=== PATIENT | male | born 1985 | race Hispanic/Latino ===

== ENCOUNTER 2017-05-18 14:28 | Emergency (ER) | payer BC, OTHER ==
--- NOTE | 2017-05-18 15:22 | RAD REPORT ---
EXAM DESCRIPTION: CT - Stone Protocol - 05/18/2017 3:10 pm CLINICAL HISTORY: Flank pain. COMPARISON: None. TECHNIQUE: Axial images were obtained without oral or IV contrast. Lack of contrast limits solid org an and vascular assessment. The [id number] spans the entirety of the system partially obscuring uppermost abdomen and lung bases. Coronal reformatted images were obtained and reviewed. All CT scans are performed using dose optimization technique as appropriate and may include automated exposure control or mA/KV adjustment according to patient size. FINDINGS: The lower lung funes are clear. Imaged portions of the liver and spleen show no suspicious findings on non-contrast imaging. The panc reas and adrenal glands are normal. No pathologic lymphadenopathy in the abdomen or pelvis. No urinary tract stones or obstructive uropathy. No bowel obstruction, free air, free fluid or abscess. Normal appendix noted. No significant bony abnormality. IMPRESSION: No urinary tract stones or obstructive uropathy.
[2017-05-18] MEDS ORDERED: NA CHLORIDE 0.9% 1,000 ML ONE (15:39)
[2017-05-18 15:45] LABS: Urine Blood NEGATIVE (NEG); Urine Glucose NEGATIVE (NEG); Urine Protein NEGATIVE (NEG); Urine Specific Gravity 1.025 (1.005-1.030)
[2017-05-18 15:54] LABS: Bicarbonate 26 mEq/L (21-31); Glucose Level 98 mg/dL (65-120); Lipase 17 U/L (22-51); Potassium 3.7 mEq/L (3.6-5.0); Sodium Level 138 mEq/L (135-145)
[2017-05-18 16:01] LABS: ALT/SGPT 41 IU/L (10-60); AST/SGOT 32 IU/L (10-42); Albumin 4.1 g/dL (3.2-5.5); Alkaline Phosphatase 118 IU/L (42-121); BUN Blood Urea Nitrogen 13 mg/dL (6-20); Bilirubin Direct 0.1 mg/dL (0-0.2); Bilirubin Total 0.6 mg/dL (0.3-1.2); Glomerular Filtration Rate > 90 mL/min (=/>90)
[2017-05-18 16:05] LABS: Absolute Monocytes 0.9 K/uL (0.1-1.3); Absolute Neutrophil 7.3 K/uL (1.8-8.0); Basophils % 0.5 % (0-1.3); Eosinophils % 3.4 % (0-4.4); Lymphocytes % 25.8 % (15.3-44.8); MCH 28.8 pg (27.0-35.0); MCV 84.9 fL (80-100); MPV 9.6 fL (7.6-11.3); Monocytes % 7.7 % (3.3-12.3); RBC Red Blood Cell Count 5.54 M/uL (4.33-5.43)
--- NOTE | 2017-05-18 16:43 | ER ---
Nurse's Notes [facility] Name: Mauro Bautista Jr Age: 31 yrs Sex: Male : 1985 Arrival Date: 05/18/2017 Time: 14:33 Bed 15 Private MD: Diagnosis: Low back pain Presentation: 05/18 14:37 Presenting complaint: Patient states: Left flank pain x 5 days. Vomit x 1 2 days ago. hb Denies fever/urinary s/s. Transition of care: patient was not received from another setting of care. Onset of symptoms was May 13, 2017. Care prior to arrival: None. 14:37 Method Of Arrival: Ambulatory hb 14:37 Acuity: KILO 3 hb Historical: - Allergies: 14:39 No Known Allergies; hb - Home Meds: 14:39 None [Active]; hb - PMHx: 14:39 None; hb - PSHx: 14:39 foot - left; arm - right; hb - Immunization history:: Adult Immunizations up to date. - Social history:: Smoking status: Patient/guardian denies using tobacco. Screenin:02 Abuse screen: Denies threats or abuse. Nutritional screening: No deficits noted. ap3 Tuberculosis screening: No symptoms or risk factors identified. Fall Risk None identified. Assessment: 14:59 General: Appears in no apparent distress. obese, Behavior is calm, cooperative. Pain: ap3 Complains of pain in anterior aspect of left lateral abdomen and posterior aspect of left lateral abdomen Pain does not radiate. Pain began patient states pain began Saturday, May 13, 2017 Aggravated by leaning to the left side. Neuro: Level of Consciousness is awake, alert, obeys commands, Oriented to person, place, time, situation. Cardiovascular: Heart tones S1 S2 present Patient's skin is warm and dry. Respiratory: Airway is patent Breath sounds are clear bilaterally. GI: Abdomen is round Last BM was May 18, 2017. at 12:00. Bowel sounds present X 4 quads. Abd is soft and non tender X 4 quads. Reports diarrhea, vomiting one time on Monday May 15, 2017. : No signs and/or symptoms were reported regarding the genitourinary system. EENT: No signs and/or symptoms were reported regarding the EENT system. Derm: Skin is normal. Musculoskeletal: Reports pain in anterior aspect of left lateral abdomen and posterior aspect of left lateral abdomen. Vital Signs: 14:38 BP 164 / 93; Pulse 73; Resp 16; Temp 97.9; Pulse Ox 96% on R/A; Weight 136.08 kg; hb Height 5 ft. 11 in. (180.34 cm); Pain 5/10; 15:49 Pulse 74; Resp 19; Pulse Ox 98% on R/A; ae1 16:07 BP 109 / 53; Pulse 74; Pulse Ox 99% on R/A; ap3 16:52 BP 125 / 80; Pulse 87; Resp 18; Pulse Ox 98% on R/A; ae1 14:38 Body Mass Index 41.84 (136.08 kg, 180.34 cm) hb ED Course: 14:33 Patient arrived in ED. mr 14:38 Triage completed. hb 14:38 Arm band placed on right wrist. hb 14:43 [place] Daily NP is PHCP. pm1 14:44 Jeffrey Kay MD is Attending Physician. pm1 14:47 Abdiel Arzate RN is Primary Nurse. ae1 15:02 Bed in low position. Call light in reach. Side rails up X 1. Pulse ox on. NIBP on. ap3 15:[address] vr 15:[address] via wheelchair. ap3 15:09 CT completed. Patient tolerated procedure well. Patient moved back from CT. vr 15:10 CT Stone Protocol In Process Unspecified. EDMS 15:37 Missed attempt(s): 20 gauge in right antecubital area. ap3 15:38 Inserted saline lock: 18 gauge in left antecubital area, using aseptic technique. Blood ap3 collected. 16:52 No provider procedures requiring assistance completed. IV discontinued, intact, ae1 bleeding controlled, No redness/swelling at site. Pressure dressing applied. Administered Medications: 15:41 Drug: NS 0.9% 1000 ml Route: IV; Rate: 1000 ml; Site: left antecubital; ae1 17:00 Follow up: IV Status: Completed infusion ae1 Outcome: 16:43 Discharge ordered by . pm1 16:52 Attestation : I agree with there charting done by So Gramajo, nursing staffing coordinator. . ae1 16:52 Discharged to home ambulatory. 16:52 Condition: stable 16:52 Discharge instructions given to patient, Instructed on discharge instructions, follow up and referral plans. Demonstrated understanding of instructions. 17:00 Patient left the ED. ae1 Signatures: Dispatcher [employer] MARLEY ThomasChaparrita mr Chávez, Salinas Sutton, WEAVER APPRENTICE WEAVER APPRENTICE pm1 Lisa Hoang, BARBARA RN Abdiel Arzate RN RN ae1 So Gramajo ap3 Corrections: (The following items were deleted from the chart) 14:49 14:47 BP 112 / 77; Pulse 81bpm; Resp 16bpm; Pulse Ox 100% RA; ae1 ae1
--- NOTE | 2017-05-18 16:43 | EDPHYS ---
Physician Documentation [facility] Name: Mauro Bautista Jr Age: 31 yrs Sex: Male : 1985 Arrival Date: 05/18/2017 Time: 14:33 Bed 15 Private MD: ED Physician Jeffrey Kay HPI: 05/18 16:31 This 31 yrs old Male presents to ER via Ambulatory with complaints of Flank pm1 Pain. 16:31 The patient complains of pain in the left low back. The pain does not radiate. Onset: pm1 The symptoms/episode began/occurred 5 day(s) ago. Modifying factors: The symptoms are alleviated by nothing. the symptoms are aggravated by movement, to left side. Associated signs and symptoms: Pertinent negatives:. Severity of pain: in the emergency department the pain is actually worse. The patient has not experienced similar symptoms in the past. The patient has not recently seen a physician. Patient with "discomfort" to left flank. No diarrhea. One episode of vomiting 2 days ago. No fever. No dysuria. Historical: - Allergies: 14:39 No Known Allergies; hb - Home Meds: 14:39 None [Active]; hb - PMHx: 14:39 None; hb - PSHx: 14:39 foot - left; arm - right; hb - Immunization history:: Adult Immunizations up to date. - Social history:: Smoking status: Patient/guardian denies using tobacco. ROS: 16:31 Constitutional: Negative for fever, chills, and weight loss, Eyes: Negative for injury, pm1 pain, redness, and discharge, ENT: Negative for injury, pain, and discharge, Neck: Negative for injury, pain, and swelling, Cardiovascular: Negative for chest pain, palpitations, and edema, Respiratory: Negative for shortness of breath, cough, wheezing, and pleuritic chest pain, Abdomen/GI: Negative for abdominal pain, nausea, vomiting, diarrhea, and constipation. 16:31 : Negative for injury, bleeding, discharge, and swelling, MS/Extremity: Negative for injury and deformity, Skin: Negative for injury, rash, and discoloration, Neuro: Negative for headache, weakness, numbness, tingling, and seizure. 16:31 Back: Positive for flank pain, on the left. Exam: 16:31 Constitutional: This is a well developed, well nourished patient who is awake, alert, pm1 and in no acute distress. Head/Face: Normocephalic, atraumatic. Eyes: Pupils equal round and reactive to light, extra-ocular motions intact. Lids and lashes normal. Conjunctiva and sclera are non-icteric and not injected. Cornea within normal limits. Periorbital areas with no swelling, redness, or edema. Chest/axilla: Normal chest wall appearance and motion. Nontender with no deformity. No lesions are appreciated. Cardiovascular: Regular rate and rhythm with a normal S1 and S2. No gallops, murmurs, or rubs. Normal PMI, no JVD. No pulse deficits. Respiratory: Lungs have equal breath sounds bilaterally, clear to auscultation and percussion. No rales, rhonchi or wheezes noted. No increased work of breathing, no retractions or nasal flaring. Abdomen/GI: Soft, non-tender, with normal bowel sounds. No distension or tympany. No guarding or rebound. No evidence of tenderness throughout. 16:31 Skin: Warm, dry with normal turgor. Normal color with no rashes, no lesions, and no evidence of cellulitis. MS/ Extremity: Pulses equal, no cyanosis. Neurovascular intact. Full, normal range of motion. 16:31 Back: pain, left lateral aspect of lower back, normal spinal alignment noted. 16:31 Neuro: Orientation: is normal, Mentation: is normal, Motor: is normal, moves all fours, Sensation: is normal, no obvious gross deficits. Vital Signs: 14:38 BP 164 / 93; Pulse 73; Resp 16; Temp 97.9; Pulse Ox 96% on R/A; Weight 136.08 kg; hb Height 5 ft. 11 in. (180.34 cm); Pain 5/10; 15:49 Pulse 74; Resp 19; Pulse Ox 98% on R/A; ae1 16:07 BP 109 / 53; Pulse 74; Pulse Ox 99% on R/A; ap3 16:52 BP 125 / 80; Pulse 87; Resp 18; Pulse Ox 98% on R/A; ae1 14:38 Body Mass Index 41.84 (136.08 kg, 180.34 cm) hb MDM: 14:44 Patient medically screened. pm1 16:41 Data reviewed: vital signs. Data interpreted: Pulse oximetry: on room air is 99 %. pm1 Interpretation: normal. Counseling: I had a detailed discussion with the patient and/or guardian regarding: the historical points, exam findings, and any diagnostic results supporting the discharge/admit diagnosis, lab results, radiology results, the need for outpatient follow up, to return to the emergency department if symptoms worsen or persist or if there are any questions or concerns that arise at home. 05/18 14:50 Order name: Basic Metabolic Panel; Complete Time: 16:04 pm1 05/18 14:50 Order name: CBC with Diff; Complete Time: 16:30 pm1 05/18 14:50 Order name: Hepatic Function; Complete Time: 16:04 pm1 05/18 14:50 Order name: Lipase; Complete Time: 16:04 pm1 05/18 14:50 Order name: CT Stone Protocol; Complete Time: 15:30 pm1 05/18 15:26 Order name: Urine Dipstick--Ancillary (enter results); Complete Time: 15:56 ag 05/18 14:50 Order name: IV Saline Lock; Complete Time: 15:39 pm1 05/18 14:50 Order name: Labs collected and sent; Complete Time: 15:39 pm1 05/18 14:50 Order name: Urine Dipstick-Ancillary (obtain specimen); Complete Time: 15:10 pm1 Administered Medications: 15:41 Drug: NS 0.9% 1000 ml Route: IV; Rate: 1000 ml; Site: left antecubital; ae1 17:00 Follow up: IV Status: Completed infusion ae1 Disposition: 17:26 Co-signature as Attending Physician, Jeffrey Kay MD I agree with the assessment and kdr plan of care. Disposition: 05/18/17 16:43 Discharged to Home. Impression: Low back pain. - Condition is Stable. - Discharge Instructions: Flank Pain. - Medication Reconciliation Form, Thank You Letter form. - Follow up: Emergency Department; When: As needed; Reason: Worsening of condition. Follow up: Private Physician; When: 2 - 3 days; Reason: Recheck today's complaints, Continuance of care, Re-evaluation by your physician. - Problem is new. - Symptoms have improved. Signatures: Dispatcher [employer] EDJeffrey Navarrete MD MD kdr Marinas Salinas, MEDICAL LABORATORY TECHNOLOGIST MEDICAL LABORATORY TECHNOLOGIST pm1 Lisa Hoang, RN RN hb Abdiel Arzate RN RN ae1
== END 2017-05-18 17:00 | disposition home or self-care (01) ==
LOC: ER 14:28
DX: M54.5 Low back pain (principal)
CPT/HCPCS: 36415; 74176; 76377; 80048; 80076; 81003; 83690; 85025; 96360; 99284; J7030

== ENCOUNTER 2017-08-19 17:30 | Emergency (ER) | payer BC ==
--- NOTE | 2017-08-19 18:16 | EDPHYS ---
Physician Documentation [facility] Name: Mauro Bautista Jr Age: 31 yrs Sex: Male : 1985 Arrival Date: 08/19/2017 Time: 17:33 Bed 7 Private MD: None, None ED Physician Matthew Saxena HPI: 08/19 18:12 This 31 yrs old Male presents to ER via Ambulatory with complaints of Chest jr8 Wall Pain - With Cough. 18:12 The patient or guardian reports chest pain that is located primarily in the anterior jr8 chest wall, left. The pain does not radiate. Associated signs and symptoms: Pertinent positives: cough. The chest pain is described as sharp. Duration: The patient or guardian reports multiple episodes, that are intermittent, that wax and wane. Modifying factors: The symptoms are alleviated by nothing. the symptoms are aggravated by cough, deep breath, movement, palpation of area. Severity of pain: At its worst the pain was mild in the emergency department the pain is unchanged. The patient has not experienced similar symptoms in the past. The patient has not recently seen a physician. Historical: - Allergies: 17:44 No Known Allergies; lk1 - PMHx: 17:44 None; lk1 - PSHx: 17:44 left foot; lk1 - Immunization history:: Adult Immunizations up to date. - Social history:: Smoking status: Patient/guardian denies using tobacco. - Ebola Screening: : No symptoms or risks identified at this time. ROS: 18:12 Eyes: Negative for injury, pain, redness, and discharge, ENT: Negative for injury, jr8 pain, and discharge, Neck: Negative for injury, pain, and swelling, Respiratory: Negative for shortness of breath, cough, wheezing, and pleuritic chest pain, Abdomen/GI: Negative for abdominal pain, nausea, vomiting, diarrhea, and constipation, Back: Negative for injury and pain, MS/Extremity: Negative for injury and deformity, Skin: Negative for injury, rash, and discoloration, Neuro: Negative for headache, weakness, numbness, tingling, and seizure. 18:12 Cardiovascular: Positive for chest pain, with cough, with movement, Negative for edema, orthopnea, palpitations, paroxysmal nocturnal dyspnea. Exam: 18:12 Cardiovascular: Regular rate and rhythm with a normal S1 and S2. No gallops, murmurs, jr8 or rubs. Normal PMI, no JVD. No pulse deficits. Respiratory: Lungs have equal breath sounds bilaterally, clear to auscultation and percussion. No rales, rhonchi or wheezes noted. No increased work of breathing, no retractions or nasal flaring. Abdomen/GI: Soft, non-tender, with normal bowel sounds. No distension or tympany. No guarding or rebound. No evidence of tenderness throughout. Back: No spinal tenderness. No costovertebral tenderness. Full range of motion. Skin: Warm, dry with normal turgor. Normal color with no rashes, no lesions, and no evidence of cellulitis. MS/ Extremity: Pulses equal, no cyanosis. Neurovascular intact. Full, normal range of motion. Neuro: Awake and alert, GCS 15, oriented to person, place, time, and situation. Cranial nerves II-XII grossly intact. Motor strength 5/5 in all extremities. Sensory grossly intact. Cerebellar exam normal. Normal gait. 18:12 Chest/axilla: Inspection: normal, Palpation: tenderness, that is mild, of the left clavicle and anterior aspect of left upper chest. 18:12 ECG was reviewed by the Attending Physician. jr8 Vital Signs: 17:44 BP 150 / 92; Pulse 68; Resp 16; Temp 97.2(TE); Pulse Ox 100% on R/A; Weight 145.15 kg lk1 (R); Height 5 ft. 11 in. (180.34 cm) (R); Pain 0/10; 17:44 Body Mass Index 44.63 (145.15 kg, 180.34 cm) lk1 MDM: 17:45 Patient medically screened. [id number] 18:14 Differential diagnosis: abnormal EKG, acute myocardial infarction, acute pericarditis, jr8 anxiety, chest wall pain, cholecystitis, Cholelithiasis costochondritis, esophagitis, gastritis, gastroesophageal reflux disease (GERD), pericarditis, pneumonia, pneumothorax, pulmonary embolus, thoracic aortic disection. 18:14 Data reviewed: vital signs, nurses notes, EKG, and as a result, I will discharge jr8 patient. Data interpreted: Pulse oximetry: on room air is 100 %. Interpretation: normal. Counseling: I had a detailed discussion with the patient and/or guardian regarding: the historical points, exam findings, and any diagnostic results supporting the discharge/admit diagnosis, the need for outpatient follow up, a family practitioner, to return to the emergency department if symptoms worsen or persist or if there are any questions or concerns that arise at home. 08/19 17:57 Order name: EKG - Nurse/Tech; Complete Time: 18:17 EC:12 Rate is 76 beats/min. Rhythm is regular, Normal Sinus Rhythm. QRS [place] is Normal. [place] jr8 interval is normal at 154 msec. QRS interval is normal at 90 msec. QT interval is normal at 427 msec. No Q waves. T waves are Normal. No ST changes noted. Clinical impression: Normal ECG. Interpreted by me. Reviewed by me. Administered Medications: No medications were administered Disposition: 18:37 Co-signature as Attending Physician, Matthew Saxena MD. Disposition: 08/19/17 18:15 Discharged to Home. Impression: Other chest pain - chest wall pain. - Condition is Stable. - Discharge Instructions: Chest Wall Pain. - Prescriptions for Ibuprofen 800 mg Oral Tablet - take 1 tablet by ORAL route every 12 hours As needed take with food; 20 tablet. - Medication Reconciliation Form, Thank You Letter, Antibiotic Education, Prescription Opioid Use form. - Follow up: Private Physician; When: 1 week; Reason: Recheck today's complaints, Continuance of care, Re-evaluation by your physician. - Problem is new. - Symptoms have improved. Signatures: Daquan Hughes RN RN Jessy Dias RN RN ss Yinka Davis PA PA jr8 Rachel Rowell RN RN lk1 Matthew Saxena MD MD Corrections: (The following items were deleted from the chart) 18:20 18:15 08/19/2017 18:15 Discharged to Home. Impression: Other chest pain - chest wall ss pain. Condition is Stable. Forms are Medication Reconciliation Form, Thank You Letter, Antibiotic Education, Prescription Opioid Use. Follow up: Private Physician; When: 1 week; Reason: Recheck today's complaints, Continuance of care, Re-evaluation by your physician. Problem is new. Symptoms have improved. jr8
--- NOTE | 2017-08-19 18:16 | ER ---
Nurse's Notes [facility] Name: Mauro Bautista Jr Age: 31 yrs Sex: Male : 1985 Arrival Date: 08/19/2017 Time: 17:33 Bed 7 Private MD: None, None Diagnosis: Other chest pain-chest wall pain Presentation: 08/19 17:41 Presenting complaint: Patient states: "I have had a pain in my chest and in the same lk1 spot in my back for 3 weeks every time I move to the right. Yesterday I started coughing out of the blue and it hurts when I cough.". Transition of care: patient was not received from another setting of care. Onset of symptoms was July 26, 2017. Risk Assessment: Do you want to hurt yourself or someone else? Patient reports no desire to harm self or others. Initial Sepsis Screen: Does the patient meet any 2 criteria? No. Patient's initial sepsis screen is negative. Does the patient have a suspected source of infection? No. Patient's initial sepsis screen is negative. Care prior to arrival: None. 17:41 Method Of Arrival: Ambulatory lk1 17:41 Acuity: KILO 4 lk1 Historical: - Allergies: 17:44 No Known Allergies; lk1 - PMHx: 17:44 None; lk1 - PSHx: 17:44 left foot; lk1 - Immunization history:: Adult Immunizations up to date. - Social history:: Smoking status: Patient/guardian denies using tobacco. - Ebola Screening: : No symptoms or risks identified at this time. Screenin:10 Abuse screen: Denies threats or abuse. Denies injuries from another. Nutritional sg screening: No deficits noted. Tuberculosis screening: No symptoms or risk factors identified. Never had TB. Fall Risk None identified. Assessment: 18:00 General: Appears in no apparent distress. comfortable, well groomed, well developed, sg well nourished, Behavior is calm, cooperative, appropriate for age. Pain: Complains of pain in anterior aspect of left upper chest Pain does not radiate. Pain currently is 2 out of 10 on a pain scale. Quality of pain is described as gnawing, Is. Neuro: No deficits noted. Cardiovascular: Heart tones S1 S2 present Capillary refill is brisk in bilateral fingers Patient's skin is warm and dry. Chest pain quality is stabbing. Respiratory: Airway is patent Respiratory effort is even, unlabored, Respiratory pattern is regular, symmetrical, Breath sounds are clear. Respiratory: Reports cough that is non-productive, dry, pain with cough. GI: No signs and/or symptoms were reported involving the gastrointestinal system. : No signs and/or symptoms were reported regarding the genitourinary system. EENT: No signs and/or symptoms were reported regarding the EENT system. Derm: Skin is pink, warm \\T\\ dry. Musculoskeletal: No signs and/or symptoms reported regarding the musculoskeletal system. Vital Signs: 17:44 BP 150 / 92; Pulse 68; Resp 16; Temp 97.2(TE); Pulse Ox 100% on R/A; Weight 145.15 kg lk1 (R); Height 5 ft. 11 in. (180.34 cm) (R); Pain 0/10; 17:44 Body Mass Index 44.63 (145.15 kg, 180.34 cm) lk1 ED Course: 17:33 Patient arrived in ED. sb2 17:34 None, None is Private Physician. sb2 17:43 Triage completed. lk1 17:45 Yinka Davis PA is PHCP. jr8 17:45 Matthew Saxena MD is Attending Physician. jr8 17:45 Arm band placed on right wrist. lk1 17:49 Daquan Hughes, RN is Primary Nurse. sg 18:00 Patient has correct armband on for positive identification. Placed in gown. Bed in low sg position. Side rails up X2. Pulse ox on. NIBP on. 18:00 No provider procedures requiring assistance completed. Patient did not have IV access sg during this emergency room visit. Patient maintains SpO2 saturation greater than 95% on room air. Administered Medications: No medications were administered Outcome: 18:15 Discharge ordered by . [facility] 18:15 Discharged to home ambulatory. sg 18:15 Condition: good 18:15 Discharge instructions given to patient, Instructed on discharge instructions, follow up and referral plans. medication usage, safety practices, Demonstrated understanding of instructions, follow-up care, medications, Prescriptions given X 1. 18:20 Patient left the ED. Signatures: Daquan Hughes RN RN Jessy Dias RN RN Yinka Davis PA PA jrRachel Khan RN RN lk1 Evangelina Cano sb2
--- NOTE | 2017-08-20 09:00 | EKG ---
Test Date: 2017-08-19 Test Time: 18:02:29 Dental Chair Assembler: SWG MEASUREMENT RESULTS: Intervals: Rate: 76 MI: 154 QRSD: 90 QT: 380 QTc: 427 [place]: P: 62 MI: 154 QRS: 55 T: 55 INTERPRETIVE STATEMENTS: Normal sinus rhythm Normal ECG Compared to ECG 01/12/2005 17:02:00 Sinus tachycardia no longer present Electronically Signed On 08-20-17 09:00:30 CDT by Harpal Hendricks
== END 2017-08-19 18:20 | disposition home or self-care (01) ==
LOC: ER 17:30
DX: R07.89 Other chest pain (principal)
CPT/HCPCS: 93005; 99284

== ENCOUNTER 2017-10-22 21:17 | Emergency (ER) | payer BC ==
[2017-10-22] MEDS ORDERED: ALBUTEROL 2.5 MG/3 ML NEB SOL ONE (21:49)
[2017-10-22] MEDS ORDERED: IPRATROPIUM BROM 0.5MG/2.5ML ONE (21:49)
[2017-10-22 22:21] LABS: Absolute Lymphocytes (CBC) 2.7 K/uL (0.7-4.9); Absolute Monocytes 1.1 K/uL (0.1-1.3); Absolute Neutrophil 12.7 K/uL (1.8-8.0); Basophils % 0.3 % (0-1.3); Hematocrit 45.3 % (39.6-49.0); Lymphocytes % 15.8 % (15.3-44.8); MCH 29.2 pg (27.0-35.0); MCV 86.8 fL (80-100); MPV 9.1 fL (7.6-11.3); Monocytes % 6.3 % (3.3-12.3); RBC Red Blood Cell Count 5.22 M/uL (4.33-5.43)
--- NOTE | 2017-10-22 22:21 | RAD REPORT ---
EXAM DESCRIPTION: RAD - Chest Pa And Lat (2 Views) - 10/22/2017 10:10 pm CLINICAL HISTORY: Cough;Dyspnea Chest pain. COMPARISON: No comparisons FINDINGS: The lungs are grossly clear. The heart is normal in size. No displaced fractures. IMPRESSION: No acute finding suspected.
[2017-10-22] MEDS ORDERED: METHYLPREDNISOLONE 125 MG INJ ONE (22:30)
[2017-10-22 22:32] LABS: Potassium 3.8 mmol/L (3.5-5.1)
[2017-10-22] MEDS ORDERED: LEVALBUTEROL 1.25 MG/3 ML NEB ONE (23:04)
--- NOTE | 2017-10-22 23:35 | ER ---
Nurse's Notes [facility] Name: Mauro Bautista Jr Age: 32 yrs Sex: Male : 1985 Arrival Date: 10/22/2017 Time: 21:20 Bed 26 Private MD: Diagnosis: Asthmatic bronchitis Presentation: 10/22 21:26 Presenting complaint: Patient states: that this morning he started to have dry cough fc and chest pain with deep breathing. Pain is only present when he takes deep breathes. Transition of care: patient was not received from another setting of care. Onset of symptoms was October 22, 2017. Risk Assessment: Do you want to hurt yourself or someone else? Patient reports no desire to harm self or others. Initial Sepsis Screen: Does the patient meet any 2 criteria? No. Patient's initial sepsis screen is negative. Does the patient have a suspected source of infection? No. Patient's initial sepsis screen is negative. Care prior to arrival: Medication(s) given: cough and cold medication at 1700. 21:26 Method Of Arrival: Ambulatory fc 21:26 Acuity: KILO 4 fc Triage Assessment: 23:30 General: Appears in no apparent distress. comfortable. lp1 23:30 General: Behavior is calm, appropriate for age. lp1 Historical: - Allergies: 21:28 No Known Allergies; fc - Home Meds: 21:28 None [Active]; fc - PMHx: 21:28 None; fc - PSHx: 21:28 left foot; right arm surg; fc - Immunization history:: Last tetanus immunization: up to date. - Social history:: Smoking status: Patient/guardian denies using tobacco. - Ebola Screening: : Patient negative for fever greater than or equal to 101.5 degrees Fahrenheit, and additional compatible Ebola Virus Disease symptoms Patient denies exposure to infectious person Patient denies travel to an Ebola-affected area in the 21 days before illness onset. Screenin:29 Abuse screen: Denies threats or abuse. Nutritional screening: No deficits noted. fc Tuberculosis screening: No symptoms or risk factors identified. Fall Risk None identified. Assessment: 21:30 Reassessment: Patient and/or family updated on plan of care and expected duration. Pain tl3 level reassessed. Patient is alert, oriented x 3, equal unlabored respirations, skin warm/dry/pink. Pain: Denies pain. Neuro: Level of Consciousness is awake, alert, obeys commands. Cardiovascular: Patient's skin is warm and dry. Respiratory: Airway is patent Respiratory effort is even, unlabored, Respiratory pattern is regular, symmetrical, Breath sounds are diminished Breath sounds with wheezes bilaterally. in left lower lobe, right lower lobe, left posterior lower lobe and right posterior lower lobe. 22:47 Reassessment: Patient appears in no apparent distress at this time. No changes from tl3 previously documented assessment. Patient and/or family updated on plan of care and expected duration. Pain level reassessed. Patient is alert, oriented x 3, equal unlabored respirations, skin warm/dry/pink. 23:46 Reassessment: Patient is alert, oriented x 3, equal unlabored respirations, skin lp1 warm/dry/pink. Patient states feeling better. Patient states symptoms have improved. Respiratory: Respiratory effort is even, unlabored. Vital Signs: 21:28 BP 144 / 88; Pulse 86; Resp 20; Temp 98.8(O); Pulse Ox 100% on R/A; Weight 149.69 kg fc (R); Height 5 ft. 11 in. (180.34 cm) (R); Pain 0/10; 22:47 BP 125 / 77; Pulse 113; Resp 18; Pulse Ox 97% on R/A; tl3 23:29 BP 124 / 81; Pulse 112; Resp 20; Pulse Ox 96% on R/A; lp1 21:28 Body Mass Index 46.03 (149.69 kg, 180.34 cm) ED Course: 21:20 Patient arrived in ED. es 21:23 Rogers Ward MD is Attending Physician. pkl 21:28 Triage completed. fc 21:28 Arm band placed on Patient placed in an exam room, on a stretcher. fc 21:29 Patient has correct armband on for positive identification. Bed in low position. Call light in reach. Pulse ox on. NIBP on. 21:30 Patient moved to radiology. tl3 21:30 No provider procedures requiring assistance completed. Inserted saline lock: 20 gauge tl3 in right antecubital area, using aseptic technique. Blood collected. Patient maintains SpO2 saturation greater than 95% on room air. 21:31 Mylene Alfonso RN is Primary Nurse. tl3 22:00 X-ray completed. Patient tolerated procedure well. Patient moved back from radiology. ml 22:07 XRAY Chest Pa And Lat (2 Views) In Process Unspecified. EDMS 22:58 Report received from BARBARA Chakraborty. lp1 23:45 IV discontinued, No redness/swelling at site. Pressure dressing applied. lp1 Administered Medications: 21:45 Drug: Albuterol - atroVENT (3:1) (2.5 mg - 0.5 mg) 3 ml Route: Nebulizer; tl3 22:57 Follow up: Response: No change in condition lp1 22:00 Drug: SOLU-Medrol 125 mg Route: IVP; Infused Over: 2 mins; Site: right antecubital; tl3 22:57 Follow up: Response: No adverse reaction lp1 23:00 Drug: Xopenex 1.25 mg Route: Inhalation; lp1 Outcome: 23:34 Discharge ordered by . pkl 23:46 Discharged to home ambulatory, with significant other. lp1 23:46 Condition: good 23:46 Discharge instructions given to patient, Instructed on discharge instructions, follow up and referral plans. medication usage, Demonstrated understanding of instructions, follow-up care, medications, Prescriptions given X 3. 23:46 Patient left the ED. lp1 Signatures: Dispatcher [employer] EDMS Rogers Ward MD MD pkl Leia Hughes Felicia, RN Libertad Granado Laura, RN RN lp1 Mylene Alfonso, BARBARA RN tl3
--- NOTE | 2017-10-22 23:35 | EDPHYS ---
Physician Documentation [facility] Name: Mauro Bautista Jr Age: 32 yrs Sex: Male : 1985 Arrival Date: 10/22/2017 Time: 21:20 Bed 26 Private MD: ED Physician Rogers Ward HPI: 10/22 21:51 This 32 yrs old Male presents to ER via Ambulatory with complaints of Cough. pkl 21:51 The patient or guardian reports chest pain that is located primarily in the substernal pkl area. The pain does not radiate. Associated signs and symptoms: Pertinent positives: cough, shortness of breath. The chest pain is described as dull. Historical: - Allergies: 21:28 No Known Allergies; fc - Home Meds: 21:28 None [Active]; fc - PMHx: 21:28 None; fc - PSHx: 21:28 left foot; right arm surg; fc - Immunization history:: Last tetanus immunization: up to date. - Social history:: Smoking status: Patient/guardian denies using tobacco. - Ebola Screening: : Patient negative for fever greater than or equal to 101.5 degrees Fahrenheit, and additional compatible Ebola Virus Disease symptoms Patient denies exposure to infectious person Patient denies travel to an Ebola-affected area in the 21 days before illness onset. ROS: 21:51 Eyes: Negative for injury, pain, redness, and discharge, ENT: Negative for injury, pkl pain, and discharge, Neck: Negative for injury, pain, and swelling. 21:51 Cardiovascular: Positive for chest pain, with cough. 21:51 Respiratory: Positive for cough, with no reported sputum, shortness of breath. 21:51 Abdomen/GI: Negative for abdominal pain, nausea, vomiting, and diarrhea. 21:51 Back: Negative for acute changes. 21:51 : Negative for urinary symptoms. 21:51 MS/extremity: Negative for acute changes. 21:51 Skin: Negative for rash. 21:51 Neuro: Negative for altered mental status. Exam: 21:51 Head/Face: Normocephalic, atraumatic. Eyes: Pupils equal round and reactive to light, pkl extra-ocular motions intact. Lids and lashes normal. Conjunctiva and sclera are non-icteric and not injected. Cornea within normal limits. Periorbital areas with no swelling, redness, or edema. ENT: Nares patent. No nasal discharge, no septal abnormalities noted. Tympanic membranes are normal and external auditory canals are clear. Oropharynx with no redness, swelling, or masses, exudates, or evidence of obstruction, uvula midline. Mucous membranes moist. Neck: Trachea midline, no thyromegaly or masses palpated, and no cervical lymphadenopathy. Supple, full range of motion without nuchal rigidity, or vertebral point tenderness. No Meningismus. Chest/axilla: Normal chest wall appearance and motion. Nontender with no deformity. No lesions are appreciated. 21:51 Cardiovascular: Rate: normal, Rhythm: regular. 21:51 Respiratory: the patient does not display signs of respiratory distress, Respirations: normal, Breath sounds: bronchial sounds, that are mild, rhonchi, that are mild, are scattered. 21:51 Abdomen/GI: Exam negative for acute changes, Bowel sounds: normal, Palpation: abdomen is soft and non-tender, in all quadrants. 21:51 Back: Exam negative for acute changes. 21:51 : Exam negative for acute changes. 21:51 Musculoskeletal/extremity: Exam is negative for acute changes. 21:51 Skin: Exam negative for rash. 21:51 Neuro: Orientation: is normal, Mentation: is normal, Cranial nerves: grossly normal, Motor: is normal. Vital Signs: 21:28 BP 144 / 88; Pulse 86; Resp 20; Temp 98.8(O); Pulse Ox 100% on R/A; Weight 149.69 kg fc (R); Height 5 ft. 11 in. (180.34 cm) (R); Pain 0/10; 22:47 BP 125 / 77; Pulse 113; Resp 18; Pulse Ox 97% on R/A; tl3 23:29 BP 124 / 81; Pulse 112; Resp 20; Pulse Ox 96% on R/A; lp1 21:28 Body Mass Index 46.03 (149.69 kg, 180.34 cm) MDM: 21:23 Patient medically screened. pkl 23:32 Data reviewed: vital signs, nurses notes, lab test result(s), radiologic studies, plain pkl films. 10/22 21:38 Order name: CBC with Diff; Complete Time: 22:25 pkl 10/22 21:38 Order name: Chem 7; Complete Time: 22:43 pkl 10/22 21:38 Order name: D-Dimer; Complete Time: 22:55 pkl 10/22 21:38 Order name: Saline Lock; Complete Time: 21:58 pkl 10/22 21:38 Order name: XRAY Chest Pa And Lat (2 Views); Complete Time: 22:25 pkl Administered Medications: 21:45 Drug: Albuterol - atroVENT (3:1) (2.5 mg - 0.5 mg) 3 ml Route: Nebulizer; tl3 22:57 Follow up: Response: No change in condition lp1 22:00 Drug: SOLU-Medrol 125 mg Route: IVP; Infused Over: 2 mins; Site: right antecubital; tl3 22:57 Follow up: Response: No adverse reaction lp1 23:00 Drug: Xopenex 1.25 mg Route: Inhalation; lp1 Disposition: 10/22/17 23:34 Discharged to Home. Impression: Asthmatic bronchitis. - Condition is Stable. - Prescriptions for Zithromax Z- Guzman 250 mg Oral Tablet - take 1 tablet by ORAL route as directed for 5 days Day 1 - take two (2) tablets one time. Day 2, 3, 4 , 5 take one (1) tablet once daily.; 6 tablet. Albuterol Sulfate 90 mcg/actuation - inhale 1-2 puff by INHALATION route every 4-6 hours; 1 Inhaler. - Medication Reconciliation Form, Thank You Letter, Antibiotic Education, Prescription Opioid Use, Work release form, Family Work Release form. - Follow up: Private Physician; When: 2 - 3 days; Reason: Re-evaluation by your physician. - Problem is new. - Symptoms have improved. Signatures: Dispatcher [employer] EDMS Rogers Ward MD MD pkl Chretien, Felicia RN RN Qiana Cruz RN RN lp1 Mylene Alfonso, BARBARA RN tl3 Corrections: (The following items were deleted from the chart) 23:46 23:34 10/22/2017 23:34 Discharged to Home. Impression: Asthmatic bronchitis. Condition lp1 is Stable. Forms are Medication Reconciliation Form, Thank You Letter, Antibiotic Education, Prescription Opioid Use. Follow up: Private Physician; When: 2 - 3 days; Reason: Re-evaluation by your physician. Problem is new. Symptoms have improved. pkl
== END 2017-10-22 23:46 | disposition home or self-care (01) ==
LOC: ER 21:17
DX: J45.909 Unspecified asthma, uncomplicated (principal)
CPT/HCPCS: 36415; 71046; 80048; 85025; 85379; 94640; 96374; 99285; J2930

== ENCOUNTER 2017-12-31 12:42 | Emergency (ER) | payer BC ==
[2017-12-31 14:01] LABS: Absolute Lymphocytes (CBC) 2.8 K/uL (0.7-4.9); Absolute Monocytes 0.7 K/uL (0.1-1.3); Absolute Neutrophil 8.4 K/uL (1.8-8.0); Basophils % 0.6 % (0-1.3); Eosinophils % 2.7 % (0-4.4); Hematocrit 44.4 % (39.6-49.0); Lymphocytes % 22.4 % (15.3-44.8); MCH 29.3 pg (27.0-35.0); MCV 85.3 fL (80-100); MPV 9.3 fL (7.6-11.3); RBC Red Blood Cell Count 5.21 M/uL (4.33-5.43)
--- NOTE | 2017-12-31 14:03 | RAD REPORT ---
EXAM DESCRIPTION: US - Abdomen Exam Limited - 12/31/2017 1:57 pm CLINICAL HISTORY: Abdominal pain. COMPARISON: None. FINDINGS: Evaluation is somewhat limited secondary to body habitus. The gallbladder wall is not thic kened. A gallstone is not seen. The biliary tree is normal caliber. IMPRESSION: Grossly normal gallbladder ultrasound.
[2017-12-31 14:17] LABS: ALT/SGPT 58 U/L (12-78); AST/SGOT 30 U/L (15-37); Albumin 3.8 g/dL (3.4-5.0); Alkaline Phosphatase 130 U/L (45-117); BUN Blood Urea Nitrogen 11 mg/dL (7-18); Bicarbonate 29 mmol/L (21-32); Bilirubin Direct 0.2 mg/dL (0-0.2); Bilirubin Total 0.9 mg/dL (0.2-1.0); Glucose Level 91 mg/dL (74-106); Lipase 75 U/L (73-393); Potassium 3.9 mmol/L (3.5-5.1); Protein, Total 7.7 g/dL (6.4-8.2); Sodium Level 140 mmol/L (136-145)
[2017-12-31] MEDS ORDERED: PANTOPRAZOLE 40 MG INJ ONE (14:37)
--- NOTE | 2017-12-31 15:04 | ER ---
Nurse's Notes [facility] Name: Mauro Bautista Jr Age: 32 yrs Sex: Male : 1985 Arrival Date: 12/31/2017 Time: 12:44 Bed 26 Private MD: Diagnosis: Upper abdominal pain, unspecified;Gastro-esophageal reflux disease Presentation: 12/31 12:48 Presenting complaint: Patient states: RUQ pain x 3 days. Denies n/v/d. Transition of sv care: patient was not received from another setting of care. Onset of symptoms was December 28, 2017. Care prior to arrival: None. 12:48 Method Of Arrival: Ambulatory sv 12:48 Acuity: KILO 3 sv 13:57 Risk Assessment: Do you want to hurt yourself or someone else? Patient reports no aj1 desire to harm self or others. Initial Sepsis Screen: Does the patient meet any 2 criteria? No. Patient's initial sepsis screen is negative. Does the patient have a suspected source of infection? Yes: Acute abdominal pain. Triage Assessment: 12:54 General: Appears in no apparent distress. uncomfortable, obese, Behavior is calm, sv cooperative, appropriate for age. Pain: Complains of pain in right upper quadrant Pain currently is 5 out of 10 on a pain scale. Neuro: Level of Consciousness is awake, alert, obeys commands, Oriented to person, place, time, situation, Moves all extremities. Full function Gait is steady. Respiratory: Respiratory effort is even, unlabored, Respiratory pattern is regular, symmetrical. GI: Reports upper abdominal pain, Patient currently denies diarrhea, nausea, vomiting. Historical: - Allergies: 12:54 No Known Allergies; sv - Home Meds: 12:54 None [Active]; sv - PMHx: 12:54 None; sv - PSHx: 12:54 left foot; right arm surg; sv - Immunization history:: Flu vaccine is up to date. - Social history:: Smoking status: Patient/guardian denies using tobacco, Patient/guardian denies using alcohol. - Ebola Screening: : No symptoms or risks identified at this time. Screenin:55 Abuse screen: Denies threats or abuse. Denies injuries from another. Nutritional aj1 screening: No deficits noted. Tuberculosis screening: No symptoms or risk factors identified. 15:09 Fall Risk None identified. iw Assessment: 13:30 Reassessment: Ultrasound at bedside. aj1 13:55 General: Appears in no apparent distress. comfortable, Behavior is calm, cooperative, aj1 appropriate for age. Pain: Complains of pain in epigastric area Pain does not radiate. Pain currently is 5 out of 10 on a pain scale. Quality of pain is described as burning, Pain began 2-3 days ago. Is intermittent, Alleviated by nothing. Aggravated by nothing. Neuro: Level of Consciousness is awake, alert, obeys commands. Cardiovascular: Patient's skin is warm and dry. Respiratory: Airway is patent Respiratory effort is even, unlabored, Respiratory pattern is regular, symmetrical. GI: Abdomen is round non-distended, Bowel sounds present X 4 quads. Abd is soft X 4 quads Abdomen is tender to palpation in epigastric area Patient currently denies diarrhea, nausea, vomiting. : No signs and/or symptoms were reported regarding the genitourinary system. EENT: No signs and/or symptoms were reported regarding the EENT system. Derm: No signs and/or symptoms reported regarding the dermatologic system. Skin is pink, warm \T\ dry. normal. Musculoskeletal: No deficits noted. No signs and/or symptoms reported regarding the musculoskeletal system. Circulation, motion, and sensation intact. 14:43 Reassessment: Patient appears in no apparent distress at this time. Patient and/or iw family updated on plan of care and expected duration. Pain level reassessed. Patient is alert, oriented x 3, equal unlabored respirations, skin warm/dry/pink. Patient denies pain at this time. Patient states feeling better. Patient states symptoms have improved. Vital Signs: 12:55 BP 151 / 86; Pulse 83; Resp 20; Temp 97.2; Pulse Ox 100% ; Weight 147.42 kg; Height 5 sv ft. 11 in. (180.34 cm); Pain 5/10; 13:55 BP 126 / 83; Pulse 84; Resp 18; Pulse Ox 98% on R/A; aj1 14:44 BP 126 / 85; Pulse 77; Resp 16; Pulse Ox 99% on R/A; Pain 0/10; iw 12:55 Body Mass Index 45.33 (147.42 kg, 180.34 cm) sv ED Course: 12:44 Patient arrived in ED. as 12:47 Trudi Hopkins FNP-C is [facility]. kb 12:47 Aldo Edouard MD is Attending Physician. kb 12:48 Arm band placed on Patient placed in an exam room, on a stretcher, on pulse oximetry. sv 12:53 Triage completed. sv 13:07 Dora Grace, RN is Primary Nurse. aj1 13:55 Patient has correct armband on for positive identification. Bed in low position. Call aj1 light in reach. Side rails up X 1. 13:55 No provider procedures requiring assistance completed. Initial lab(s) drawn, by me, marcello sent to lab. Inserted saline lock: 20 gauge in right antecubital area, using aseptic technique. Blood collected. 13:59 US Abdomen Limited In Process Unspecified. EDMS 15:08 IV discontinued, intact, bleeding controlled, No redness/swelling at site. Pressure iw dressing applied. Administered Medications: 14:33 Drug: ProTONIX 40 mg Route: IVP; Site: left antecubital; iw 15:09 Follow up: Response: No adverse reaction iw Outcome: 14:52 Discharge ordered by MD. kb 15:08 Discharged to home ambulatory. iw 15:08 Condition: good 15:08 Discharge instructions given to patient, Instructed on discharge instructions, follow up and referral plans. Demonstrated understanding of instructions, follow-up care. 15:10 Patient left the ED. iw Signatures: Dispatcher [employer] EDMS Trudi Hopkins FNP-C FNP-Dora Rizzo, RN RN aj1 Angelita Del Valle RN RN Lynette Mcclelland Irene, RN RN iw
--- NOTE | 2017-12-31 15:04 | EDPHYS ---
Physician Documentation [facility] Name: Mauro Bautista Jr Age: 32 yrs Sex: Male : 1985 Arrival Date: 12/31/2017 Time: 12:44 Bed 26 Private MD: ED Physician Aldo Edouard HPI: 12/31 13:30 This 32 yrs old Male presents to ER via Ambulatory with complaints of kb Epigastric Pain. 13:30 The patient presents with abdominal pain in the epigastric area. Onset: The kb symptoms/episode began/occurred 3 day(s) ago. The symptoms do not radiate. Associated signs and symptoms: none. The symptoms are described as burning, intermittent. Modifying factors: The symptoms are alleviated by nothing, the symptoms are aggravated by nothing. Severity of pain: At its worst the pain was moderate in the emergency department the pain is unchanged. The patient has not experienced similar symptoms in the past. The patient has not recently seen a physician. Historical: - Allergies: 12:54 No Known Allergies; sv - Home Meds: 12:54 None [Active]; sv - PMHx: 12:54 None; sv - PSHx: 12:54 left foot; right arm surg; sv - Immunization history:: Flu vaccine is up to date. - Social history:: Smoking status: Patient/guardian denies using tobacco, Patient/guardian denies using alcohol. - Ebola Screening: : No symptoms or risks identified at this time. ROS: 13:30 Constitutional: Negative for fever, chills, and weight loss, Cardiovascular: Negative kb for chest pain, palpitations, and edema, Respiratory: Negative for shortness of breath, cough, wheezing, and pleuritic chest pain, Back: Negative for injury and pain, : Negative for injury, bleeding, discharge, and swelling, MS/Extremity: Negative for injury and deformity, Skin: Negative for injury, rash, and discoloration, Neuro: Negative for headache, weakness, numbness, tingling, and seizure. 13:30 Abdomen/GI: Positive for abdominal pain, Negative for nausea, vomiting, and diarrhea. Exam: 13:30 Constitutional: This is a well developed, well nourished patient who is awake, alert, kb and in no acute distress. Head/Face: Normocephalic, atraumatic. Chest/axilla: Normal chest wall appearance and motion. Nontender with no deformity. No lesions are appreciated. Cardiovascular: Regular rate and rhythm with a normal S1 and S2. No gallops, murmurs, or rubs. Normal PMI, no JVD. No pulse deficits. Respiratory: Lungs have equal breath sounds bilaterally, clear to auscultation and percussion. No rales, rhonchi or wheezes noted. No increased work of breathing, no retractions or nasal flaring. Back: No spinal tenderness. No costovertebral tenderness. Full range of motion. Skin: Warm, dry with normal turgor. Normal color with no rashes, no lesions, and no evidence of cellulitis. MS/ Extremity: Pulses equal, no cyanosis. Neurovascular intact. Full, normal range of motion. Neuro: Awake and alert, GCS 15, oriented to person, place, time, and situation. Cranial nerves II-XII grossly intact. Motor strength 5/5 in all extremities. Sensory grossly intact. Cerebellar exam normal. Normal gait. 13:30 Abdomen/GI: Inspection: abdomen appears normal, Bowel sounds: normal, in all quadrants, Palpation: soft, in all quadrants, nontender, in the right upper quadrant, left upper quadrant, right lower quadrant and left lower quadrant, moderate abdominal tenderness, in the epigastric area. Vital Signs: 12:55 BP 151 / 86; Pulse 83; Resp 20; Temp 97.2; Pulse Ox 100% ; Weight 147.42 kg; Height 5 sv ft. 11 in. (180.34 cm); Pain 5/10; 13:55 BP 126 / 83; Pulse 84; Resp 18; Pulse Ox 98% on R/A; aj1 14:44 BP 126 / 85; Pulse 77; Resp 16; Pulse Ox 99% on R/A; Pain 0/10; iw 12:55 Body Mass Index 45.33 (147.42 kg, 180.34 cm) sv MDM: 12:50 Patient medically screened. kb 13:30 Data reviewed: vital signs, nurses notes. Data interpreted: Pulse oximetry: on room air kb is 100 %. Interpretation: normal. 14:52 Counseling: I had a detailed discussion with the patient and/or guardian regarding: the kb historical points, exam findings, and any diagnostic results supporting the discharge/admit diagnosis, lab results, radiology results, the need for outpatient follow up, a family practitioner, to return to the emergency department if symptoms worsen or persist or if there are any questions or concerns that arise at home. 12/31 12:53 Order name: Basic Metabolic Panel; Complete Time: 14:21 kb 12/31 12:53 Order name: CBC with Diff; Complete Time: 14:21 kb 12/31 12:53 Order name: Hepatic Function; Complete Time: 14:21 kb 12/31 12:53 Order name: Lipase; Complete Time: 14:21 kb 12/31 12:53 Order name: US Abdomen Limited; Complete Time: 14:21 kb 12/31 12:53 Order name: IV Saline Lock; Complete Time: 13:54 kb 12/31 12:53 Order name: Labs collected and sent; Complete Time: 13:54 kb Administered Medications: 14:33 Drug: ProTONIX 40 mg Route: IVP; Site: left antecubital; iw 15:09 Follow up: Response: No adverse reaction iw Disposition: 18:54 Co-signature as Attending Physician, Aldo Edouard MD available for consultation at ps1 all times. . Disposition: 12/31/17 14:52 Discharged to Home. Impression: Upper abdominal pain, unspecified, Gastro-esophageal reflux disease. - Condition is Stable. - Discharge Instructions: Gastroesophageal Reflux Disease, Adult, Abdominal Pain, Adult, [id number]. - Medication Reconciliation Form, Thank You Letter, Antibiotic Education, Prescription Opioid Use, Work release form form. - Follow up: Emergency Department; When: As needed; Reason: Worsening of condition. Follow up: Private Physician; When: 2 - 3 days; Reason: Recheck today's complaints, Continuance of care, Re-evaluation by your physician. Signatures: Dispatcher [employer] Trudi Walls, JOSE GUADALUPE-C LIBRARY MANAGER-Angelita Meyer RN RN sv Williams, Irene, RN RN iw Singer, Phillip, MD MD ps1 Corrections: (The following items were deleted from the chart) 15:10 14:52 12/31/2017 14:52 Discharged to Home. Impression: Upper abdominal pain, iw unspecified; Gastro-esophageal reflux disease. Condition is Stable. Forms are Medication Reconciliation Form, Thank You Letter, Antibiotic Education, Prescription Opioid Use. Follow up: Emergency Department; When: As needed; Reason: Worsening of condition. Follow up: Private Physician; When: 2 - 3 days; Reason: Recheck today's complaints, Continuance of care, Re-evaluation by your physician. kb
== END 2017-12-31 15:10 | disposition home or self-care (01) ==
LOC: ER 12:42
DX: K21.9 Gastro-esophageal reflux disease without esophagitis (principal); R10.10 Upper abdominal pain, unspecified
CPT/HCPCS: 36415; 76705; 80048; 80076; 83690; 85025; 96374; 99284; C9113

== ENCOUNTER 2018-05-31 15:08 | Emergency (ER) | payer BC ==
[2018-05-31 16:19] LABS: Absolute Lymphocytes (CBC) 2.8 K/uL (0.7-4.9); Absolute Monocytes 0.8 K/uL (0.1-1.3); Absolute Neutrophil 7.7 K/uL (1.8-8.0); Basophils % 0.9 % (0-1.3); Eosinophils % 2.5 % (0-4.4); Hematocrit 45.3 % (39.6-49.0); Lymphocytes % 24.2 % (15.3-44.8); MPV 9.3 fL (7.6-11.3); Monocytes % 6.8 % (3.3-12.3); RBC Red Blood Cell Count 5.29 M/uL (4.33-5.43)
[2018-05-31 16:35] LABS: ALT/SGPT 54 U/L (12-78); AST/SGOT 24 U/L (15-37); Albumin 3.8 g/dL (3.4-5.0); Alkaline Phosphatase 128 U/L (45-117); BUN Blood Urea Nitrogen 13 mg/dL (7-18); Bicarbonate 27 mmol/L (21-32); Bilirubin Direct 0.2 mg/dL (0-0.2); Bilirubin Total 0.8 mg/dL (0.2-1.0); Glucose Level 92 mg/dL (74-106); Lipase 63 U/L (73-393); Potassium 3.9 mmol/L (3.5-5.1); Protein, Total 7.9 g/dL (6.4-8.2); Sodium Level 142 mmol/L (136-145)
--- NOTE | 2018-05-31 17:22 | RAD REPORT ---
EXAM DESCRIPTION: US - Scrotum Testicles - 05/31/2018 4:38 pm CLINICAL HISTORY: Left testicular pain COMPARISON: None FINDINGS: Right testicle measures 4.2 x 2.7 x 3.2 centimeters. Echotexture is homogeneous. Normal bl ood flow Left testicle measures 4 x 2.4 x 3.8 centimeters. Echotexture is homogeneous. Normal blood flow The epididymides are normal in size and echotexture. Normal blood flow is seen. Two small right sperm atoceles. The largest measures 3 millimeters Two fat filled left inguinal lymph nodes. The largest measures 2.7 x 1 x 1.7 centimeters IMPRESSION: Small right spermatoceles Two small fat filled inguinal lymph nodes likely reactive in nature
--- NOTE | 2018-05-31 17:28 | RAD REPORT ---
EXAM DESCRIPTION: CT - Abdomen Pelvis W Contrast - 05/31/2018 4:50 pm CLINICAL HISTORY: Abdominal pain with nausea. COMPARISON: none. TECHNIQUE: Computed axial tomography of the abdomen pelvis was obtained. 100 cc Isovue-300 was admin istered intravenously. Oral contrast was not requested which limits evaluation of bowel. All CT scans are performed using dose optimization technique as appropriate and may include automated exposure control or mA/KV adjustment according to patient size. FINDINGS: Fatty liver Spleen, pancreas, adrenal and kidneys appear unremarkable. There is no evidence of diverticulitis. Normal appendix Tiny umbilical hernia Couple small left inguinal lymph nodes IMPRESSION: Couple of small left inguinal lymph nodes likely reactive. Fatty liver.
--- NOTE | 2018-05-31 17:46 | EDPHYS ---
Physician Documentation [facility] Name: Mauro Bautista Jr Age: 32 yrs Sex: Male : 1985 Arrival Date: 05/31/2018 Time: 15:11 Bed 25 Private MD: ED Physician Jeffrey Kay HPI: 05/31 15:49 This 32 yrs old Male presents to ER via Ambulatory with complaints of jmm Testicular Pain. 15:49 The patient presents with swelling, that is moderate. Onset: The symptoms/episode jmm began/occurred acutely. Modifying factors: The symptoms are alleviated by nothing, the symptoms are aggravated by movement. Associated signs and symptoms: Pertinent positives: abdominal pain, Pertinent negatives: dysuria, fever. This is a 32 year old male with no chronic medical conditions that presents to the ED with complaints of left sided scrotal pain and abdominal pain beginning yesterday as he was walking. Patient denies fever, vomiting, diarrhea. . Historical: - Allergies: 15:38 No Known Allergies; tw2 - Home Meds: 15:38 None [Active]; tw2 - PMHx: 15:38 None; tw2 - PSHx: 15:38 left foot; right arm surg; tw2 - Immunization history:: Adult Immunizations. - Social history:: Smoking status: . - Ebola Screening: : Patient denies travel to an Ebola-affected area in the 21 days before illness onset. ROS: 15:49 Constitutional: Negative for fever, chills, and weight loss, Cardiovascular: Negative jmm for chest pain, palpitations, and edema, Respiratory: Negative for shortness of breath, cough, wheezing, and pleuritic chest pain. 15:49 Abdomen/GI: Positive for abdominal pain. 15:49 : Positive for testicular pain Negative for urinary symptoms. 15:49 All other systems are negative. Exam: 15:49 Constitutional: This is a well developed, well nourished patient who is awake, alert, jmm and in no acute distress. Head/Face: atraumatic. Eyes: EOMI, no conjunctival erythema appreciated ENT: Moist Mucus Membranes Neck: Trachea midline, Supple Chest/axilla: Normal chest wall appearance and motion. Cardiovascular: Regular rate and rhythm. No edema appreciated Respiratory: Normal respirations, no respiratory distress appreciated 15:49 Abdomen/GI: Inspection: obese Bowel sounds: normal, Palpation: soft, mild abdominal tenderness, in the left lower quadrant. 15:49 : Male external genitalia: mild left epididymal tenderness is appreciated. . 15:49 Musculoskeletal/extremity: ROM: intact in all extremities. 15:49 Skin: Appearance: Color: normal in color. 15:49 Neuro: Orientation: is normal, Mentation: is normal, Memory: is normal. 15:49 Psych: Behavior/mood is pleasant, cooperative. Vital Signs: 15:34 BP 123 / 94; Pulse 76; Resp 18; Temp 97.9(O); Pulse Ox 100% on R/A; Pain 1/10; tw2 16:47 BP 138 / 88; Pulse 67; Resp 17; Pulse Ox 98% on R/A; tw2 17:57 BP 118 / 72; Pulse 69; Resp 17; Pulse Ox 99% on R/A; tw2 15:34 3/10 if i move a certain way tw2 MDM: 15:49 Patient medically screened. [facility] 17:44 Data reviewed: vital signs, nurses notes. Counseling: I had a detailed discussion with erma the patient and/or guardian regarding: the historical points, exam findings, and any diagnostic results supporting the discharge/admit diagnosis, the need for outpatient follow up, to return to the emergency department if symptoms worsen or persist or if there are any questions or concerns that arise at home. 17:44 ED course: CT negative for inguinal hernia or any other acute intraabdominal process. [facility] Patient is advised to follow up with Urology for further evaluation. Patient is otherwise given strict return precautions. patient understood and agrees with the plan of care. . 05/31 15:50 Order name: Basic Metabolic Panel; Complete Time: 16:36 [facility] 05/31 15:50 Order name: CBC with Diff; Complete Time: 16:36 [facility] 05/31 15:50 Order name: Creatinine for Radiology; Complete Time: 16:36 [facility] 05/31 15:50 Order name: Hepatic Function; Complete Time: 16:36 [facility] 05/31 15:50 Order name: Lipase; Complete Time: 16:36 [facility] 05/31 17:40 Order name: Urine Dipstick--Ancillary (enter results) 05/31 15:50 Order name: IV Saline Lock; Complete Time: 16:05 [facility] 05/31 15:50 Order name: Labs collected and sent; Complete Time: 16:05 [facility] 05/31 15:50 Order name: CT Abd/Pelvis - W/Contrast; Complete Time: 17:30 [facility] 05/31 15:50 Order name: US Scrotum Testicles; Complete Time: 17:30 [facility] 05/31 17:18 Order name: Urine Dipstick-Ancillary (obtain specimen); Complete Time: 17:38 [facility] Administered Medications: No medications were administered Disposition: 05/31/18 17:45 Discharged to Home. Impression: Scrotal Pain. - Condition is Stable. - Discharge Instructions: Scrotal Swelling. - Medication Reconciliation Form, Thank You Letter, Antibiotic Education, Prescription Opioid Use, Work release form form. - Follow up: Private Physician; When: 2 - 3 days; Reason: Recheck today's complaints, Continuance of care, Re-evaluation by your physician. Follow up: Mulu Bishop MD; When: 2 - 3 days; Reason: Recheck today's complaints, Continuance of care, Re-evaluation by your physician. Addendum: 06/03/2018 08:25 Co-signature as Attending Physician, Jeffrey Kay MD I agree with the assessment and k dr plan of care. Signatures: Dispatcher [employer] EDMS Jeffrey Kay MD MD [facility] Stephen Arceo PA PA [facility] Shirlene Guerrero, RN RN tw2 Corrections: (The following items were deleted from the chart) 05/31 17:46 17:45 05/31/2018 17:45 Discharged to Home. Impression: Scrotal Pain. Condition is [facility] Stable. Forms are Medication Reconciliation Form, Thank You Letter, Antibiotic Education, Prescription Opioid Use. Follow up: Private Physician; When: 2 - 3 days; Reason: Recheck today's complaints, Continuance of care, Re-evaluation by your physician. [facility] 17:58 17:46 05/31/2018 17:45 Discharged to Home. Impression: Scrotal Pain. Condition is tw2 Stable. Discharge Instructions: Scrotal Swelling. Forms are Medication Reconciliation Form, Thank You Letter, Antibiotic Education, Prescription Opioid Use. Follow up: Private Physician; When: 2 - 3 days; Reason: Recheck today's complaints, Continuance of care, Re-evaluation by your physician. Follow up: Mulu Bishop; When: 2 - 3 days; Reason: Recheck today's complaints, Continuance of care, Re-evaluation by your physician. erma
--- NOTE | 2018-05-31 17:46 | ER ---
Nurse's Notes [facility] Name: Mauro Bautista Jr Age: 32 yrs Sex: Male : 1985 Arrival Date: 05/31/2018 Time: 15:11 Bed 25 Private MD: Diagnosis: Scrotal Pain Presentation: 05/31 15:16 Presenting complaint: Patient states: pain to the LEFT laurie and LEFT testicle since sg yesterday at noon when i was walking, it modesta feels like a muscle pain when i move my leg a certain way, it doesn't keep me up or anthing. denies urinary symptoms or drainage at this time. Transition of care: patient was not received from another setting of care. Onset of symptoms was May 31, 2018. Risk Assessment: Do you want to hurt yourself or someone else? Patient reports no desire to harm self or others. Initial Sepsis Screen: Does the patient meet any 2 criteria? No. Patient's initial sepsis screen is negative. Does the patient have a suspected source of infection? No. Patient's initial sepsis screen is negative. Care prior to arrival: None. 15:16 Method Of Arrival: Ambulatory sg 15:16 Acuity: KILO 3 sg Triage Assessment: 15:33 General: Appears in no apparent distress. obese, well groomed, Behavior is calm, tw2 cooperative, appropriate for age. Pain: Complains of pain in left groin. Historical: - Allergies: 15:38 No Known Allergies; tw2 - Home Meds: 15:38 None [Active]; tw2 - PMHx: 15:38 None; tw2 - PSHx: 15:38 left foot; right arm surg; tw2 - Immunization history:: Adult Immunizations. - Social history:: Smoking status: . - Ebola Screening: : Patient denies travel to an Ebola-affected area in the 21 days before illness onset. Screenin:37 Abuse screen: Denies threats or abuse. Nutritional screening: No deficits noted. tw2 Tuberculosis screening: No symptoms or risk factors identified. Fall Risk None identified. Assessment: 15:34 General: Appears in no apparent distress. obese, well groomed, Behavior is calm, tw2 cooperative, appropriate for age. Pain: Complains of pain in left groin. Neuro: Level of Consciousness is awake, alert, obeys commands, Oriented to person, place, time, situation. Cardiovascular: Heart tones S1 S2 Patient's skin is warm and dry. Respiratory: Airway is patent Respiratory effort is even, unlabored, Respiratory pattern is regular, symmetrical, Breath sounds are clear bilaterally. GI: Abdomen is round non-distended, obese, Bowel sounds present X 4 quads. : Denies discharge, urinary frequency, pt denies swelling/redness to testicles. EENT: No signs and/or symptoms were reported regarding the EENT system. Derm: No signs and/or symptoms reported regarding the dermatologic system. Musculoskeletal: Range of motion: intact in all extremities. 16:48 Reassessment: Patient appears in no apparent distress at this time. No changes from tw2 previously documented assessment. Patient and/or family updated on plan of care and expected duration. Pain level reassessed. Patient is alert, oriented x 3, equal unlabored respirations, skin warm/dry/pink. 17:57 Reassessment: Patient appears in no apparent distress at this time. No changes from tw2 previously documented assessment. Patient and/or family updated on plan of care and expected duration. Pain level reassessed. Patient is alert, oriented x 3, equal unlabored respirations, skin warm/dry/pink. Vital Signs: 15:34 BP 123 / 94; Pulse 76; Resp 18; Temp 97.9(O); Pulse Ox 100% on R/A; Pain 1/10; tw2 16:47 BP 138 / 88; Pulse 67; Resp 17; Pulse Ox 98% on R/A; tw2 17:57 BP 118 / 72; Pulse 69; Resp 17; Pulse Ox 99% on R/A; tw2 15:34 3/10 if i move a certain way tw2 ED Course: 15:11 Patient arrived in ED. rg4 15:16 Arm band placed on. sg 15:17 Triage completed. sg 15:33 Stephen Arceo PA is PHCP. [facility] 15:33 Jeffrey Kay MD is Attending Physician. [facility] 15:33 Shirlene Guerrero, BARBARA is Primary Nurse. tw2 15:36 Bed in low position. Call light in reach. Pulse ox on. NIBP on. tw2 15:56 Radiology exam delayed due to lab results not completed at this time. (BUN/Creatinine). vr 16:05 Initial lab(s) drawn, by me, sent to lab. Inserted saline lock: 20 gauge in left lt1 antecubital area, using aseptic technique. 16:39 US Scrotum Testicles In Process Unspecified. EDMS 16:50 CT Abd/Pelvis - W/Contrast In Process Unspecified. EDMS 17:46 Mulu Bishop MD is Referral Physician. [facility] 17:57 No provider procedures requiring assistance completed. IV discontinued, intact, tw2 bleeding controlled, No redness/swelling at site. Pressure dressing applied. Administered Medications: No medications were administered Outcome: 17:45 Discharge ordered by MD. jm 17:57 Discharged to home ambulatory. tw2 17:57 Condition: stable 17:57 Discharge instructions given to patient, Instructed on discharge instructions, follow up and referral plans. Demonstrated understanding of instructions, follow-up care. 17:58 Patient left the ED. tw2 Signatures: Dispatcher [employer] EDDaquan Adame RN RN Stephen Walls PA PA jmm Davis, Victoria vr Wise, Tara, RN RN tw2 Maria Guadalupe Mcclelland rg4 Juanita, Rachel lt1 Corrections: (The following items were deleted from the chart) 15:36 15:16 Presenting complaint: Patient states: pain to the right laurie and right testicle tw2 for 2-3 days, denies urinary symptoms or drainage at this time sg
[2018-05-31 19:57] LABS: Urine Blood NEGATIVE (NEG); Urine Glucose NEGATIVE (NEG); Urine Protein NEGATIVE (NEG); Urine pH 5.5 (5.0-7.0)
== END 2018-05-31 17:58 | disposition home or self-care (01) ==
LOC: ER 15:08
DX: N50.82 Scrotal pain (principal)
CPT/HCPCS: 36415; 74177; 76870; 80048; 80076; 81003; 83690; 85025; 99284; Q9967

== ENCOUNTER 2019-02-14 16:41 | Emergency (ER) | payer BC ==
--- NOTE | 2019-02-14 18:07 | EDPHYS ---
Physician Documentation [facility] Name: Mauro Bautista Jr Age: 33 yrs Sex: Male : 1985 Arrival Date: 02/14/2019 Time: 16:45 Bed 25 Private MD: ED Physician Jeffrey Kay HPI: 02/14 18:42 This 33 yrs old Male presents to ER via Ambulatory with complaints of Foot snw Pain. 18:42 The patient presents with wants to get right foot checked out post injury 2 months ago. snw The complaints affect the dorsum of right foot. Context: The problem was sustained at a friend's home, resulted from a direct blow, from a heavy object, the patient can fully bear weight, the patient is able to ambulate. Onset: The symptoms/episode began/occurred suddenly, 2 month(s) ago, and improved. Associated signs and symptoms: Pertinent positives: occasional numbness. Severity of symptoms: At their worst the symptoms were very mild. It is unknown whether or not the patient has had similar symptoms in the past. The patient has not recently seen a physician. Historical: - Allergies: 17:09 No Known Allergies; ch - Home Meds: 17:09 None [Active]; ch - PMHx: 17:09 None; ch - PSHx: 17:09 None; ch - Immunization history:: Adult Immunizations up to date, Flu vaccine is not up to date. - Social history:: Smoking status: Patient/guardian denies using tobacco, Patient/guardian denies using alcohol, street drugs. - Ebola Screening: : Patient negative for fever greater than or equal to 101.5 degrees Fahrenheit, and additional compatible Ebola Virus Disease symptoms Patient denies exposure to infectious person Patient denies travel to an Ebola-affected area in the 21 days before illness onset No symptoms or risks identified at this time. ROS: 18:42 Constitutional: Negative for fever, chills, and weight loss, Eyes: Negative for injury, snw pain, redness, and discharge, ENT: Negative for injury, pain, and discharge, Neck: Negative for injury, pain, and swelling, Cardiovascular: Negative for chest pain, palpitations, and edema, Respiratory: Negative for shortness of breath, cough, wheezing, and pleuritic chest pain, Abdomen/GI: Negative for abdominal pain, nausea, vomiting, diarrhea, and constipation, Back: Negative for injury and pain, : Negative for injury, bleeding, discharge, and swelling, Skin: Negative for injury, rash, and discoloration, Neuro: Negative for headache, weakness, numbness, tingling, and seizure. 18:42 MS/extremity: Positive for occasional paresthesia to dorsum of right foot post dropping furniture on it 2 months ago. Exam: 18:40 Constitutional: This is a well developed, well nourished patient who is awake, alert, snw and in no acute distress. Head/Face: Normocephalic, atraumatic. Eyes: Pupils equal round and reactive to light, extra-ocular motions intact. Lids and lashes normal. Conjunctiva and sclera are non-icteric and not injected. Cornea within normal limits. Periorbital areas with no swelling, redness, or edema. Neck: Trachea midline, no thyromegaly or masses palpated, and no cervical lymphadenopathy. Supple, full range of motion without nuchal rigidity, or vertebral point tenderness. No Meningismus. Chest/axilla: Normal chest wall appearance and motion. Nontender with no deformity. No lesions are appreciated. Cardiovascular: Regular rate and rhythm with a normal S1 and S2. No gallops, murmurs, or rubs. Normal PMI, no JVD. No pulse deficits. Respiratory: Lungs have equal breath sounds bilaterally, clear to auscultation and percussion. No rales, rhonchi or wheezes noted. No increased work of breathing, no retractions or nasal flaring. Abdomen/GI: Soft, non-tender, with normal bowel sounds. No distension or tympany. No guarding or rebound. No evidence of tenderness throughout. 18:40 ENT: Nares patent. No nasal discharge, no septal abnormalities noted. Tympanic membranes are normal and external auditory canals are clear. Oropharynx with no redness, swelling, or masses, exudates, or evidence of obstruction, uvula midline. Mucous membranes moist. Back: No spinal tenderness. No costovertebral tenderness. Full range of motion. Skin: Warm, dry with normal turgor. Normal color with no rashes, no lesions, and no evidence of cellulitis. Neuro: Awake and alert, GCS 15, oriented to person, place, time, and situation. Cranial nerves II-XII grossly intact. Motor strength 5/5 in all extremities. Sensory grossly intact. Cerebellar exam normal. Normal gait. Psych: Awake, alert, with orientation to person, place and time. Behavior, mood, and affect are within normal limits. 18:40 Musculoskeletal/extremity: Extremities: grossly normal except: noted in the right foot: normal exam except c/w tinea pedis, Circulation is intact in all extremities. Sensation intact. Vital Signs: 17:09 BP 127 / 81; Pulse 90; Resp 16; Temp 98.1(TE); Pulse Ox 97% on R/A; Weight 147.42 kg; ch Height 5 ft. 11 in. (180.34 cm); Pain 0/10; 18:13 BP 112 / 76; Pulse 88; Resp 16; Temp 98.1; Pulse Ox 99% on R/A; Pain 0/10; ch 17:09 Body Mass Index 45.33 (147.42 kg, 180.34 cm) MDM: 18:00 Patient medically screened. snw 18:44 Data reviewed: vital signs, nurses notes. Counseling: I had a detailed discussion with snw the patient and/or guardian regarding: the historical points, exam findings, and any diagnostic results supporting the discharge/admit diagnosis, the presence of at least one elevated blood pressure reading (>120/80) during this emergency department visit, to return to the emergency department if symptoms worsen or persist or if there are any questions or concerns that arise at home. Special discussion: I have referred the patient to see his PCP for further evaluation of high blood pressure. Medical screen evaluation completed. [facility] emergency medical condition absent. Administered Medications: No medications were administered Disposition: 02/14/19 18:06 Discharged to Home. Impression: Encounter for screening, unspecified. - Condition is Stable. - Discharge Instructions: Athlete's Foot, Hypertension, How to Take Your Blood Pressure, [id number], Managing Your Hypertension, Form - Blood Pressure Record Sheet, Foot Pain. - Prescriptions for Tinactin - spray 1 application by TOPICAL route 1-2 times daily; 1 Container. - Medication Reconciliation Form, Thank You Letter, Antibiotic Education, Prescription Opioid Use form. - Follow up: Emergency Department; When: As needed; Reason: Worsening of condition. Follow up: Private Physician; When: 2 - 3 days; Reason: Recheck today's complaints, Continuance of care, Re-evaluation by your physician. Addendum: 02/15/2019 19:36 Co-signature as Attending Physician, Jeffrey Kay MD I agree with the assessment and k dr plan of care. Signatures: Gunjan Whittington, RN RN Jeffrey Kay MD MD [facility] Meri Javier, [employer] Corrections: (The following items were deleted from the chart) 02/14 18:14 18:06 02/14/2019 18:06 Discharged to Home. Impression: Encounter for screening, unspecified. Condition is Stable. Forms are Medication Reconciliation Form, Thank You Letter, Antibiotic Education, Prescription Opioid Use. Follow up: Emergency Department; When: As needed; Reason: Worsening of condition. Follow up: Private Physician; When: 2 - 3 days; Reason: Recheck today's complaints, Continuance of care, Re-evaluation by your physician. snw
--- NOTE | 2019-02-14 18:07 | ER ---
Nurse's Notes [facility] Name: Mauro Bautista Jr Age: 33 yrs Sex: Male : 1985 Arrival Date: 02/14/2019 Time: 16:45 Bed 25 Private MD: Diagnosis: Encounter for screening, unspecified Presentation: 02/14 17:08 Presenting complaint: Patient states: pain to R foot after couch was dropped on it two ch months ago. no pain actually, sometimes it gets tingly. Transition of care: patient was not received from another setting of care. Onset of symptoms was December 08, 2018. Risk Assessment: Do you want to hurt yourself or someone else? Patient reports no desire to harm self or others. Initial Sepsis Screen: Does the patient meet any 2 criteria? No. Patient's initial sepsis screen is negative. Does the patient have a suspected source of infection? No. Patient's initial sepsis screen is negative. Care prior to arrival: None. 17:08 Method Of Arrival: Ambulatory 17:08 Acuity: KILO 5 Triage Assessment: 17:09 General: Appears in no apparent distress. comfortable, Behavior is calm, cooperative, ch appropriate for age. Pain: Complains of pain in right foot. Historical: - Allergies: 17:09 No Known Allergies; - Home Meds: 17:09 None [Active]; ch - PMHx: 17:09 None; ch - PSHx: 17:09 None; - Immunization history:: Adult Immunizations up to date, Flu vaccine is not up to date. - Social history:: Smoking status: Patient/guardian denies using tobacco, Patient/guardian denies using alcohol, street drugs. - Ebola Screening: : Patient negative for fever greater than or equal to 101.5 degrees Fahrenheit, and additional compatible Ebola Virus Disease symptoms Patient denies exposure to infectious person Patient denies travel to an Ebola-affected area in the 21 days before illness onset No symptoms or risks identified at this time. Screenin:04 Abuse screen: Denies threats or abuse. Denies injuries from another. Nutritional ch screening: No deficits noted. Tuberculosis screening: No symptoms or risk factors identified. Fall Risk None identified. Assessment: 18:04 Reassessment: Patient appears in no apparent distress at this time. Patient and/or ch family updated on plan of care and expected duration. Pain level reassessed. Patient is alert, oriented x 3, equal unlabored respirations, skin warm/dry/pink. 18:13 Reassessment: Patient appears in no apparent distress at this time. No changes from previously documented assessment. Patient and/or family updated on plan of care and expected duration. Pain level reassessed. Patient is alert, oriented x 3, equal unlabored respirations, skin warm/dry/pink. Patient denies pain at this time. Vital Signs: 17:09 BP 127 / 81; Pulse 90; Resp 16; Temp 98.1(TE); Pulse Ox 97% on R/A; Weight 147.42 kg; ch Height 5 ft. 11 in. (180.34 cm); Pain 0/10; 18:13 BP 112 / 76; Pulse 88; Resp 16; Temp 98.1; Pulse Ox 99% on R/A; Pain 0/10; ch 17:09 Body Mass Index 45.33 (147.42 kg, 180.34 cm) ED Course: 16:45 Patient arrived in ED. as 17:09 Triage completed. ch 17:09 Arm band placed on left wrist. Patient placed in waiting room. 17:30 [facility] J[facility]C [facility]. snw 17:30 Jeffrey Kay MD is Attending Physician. snw 18:04 Patient has correct armband on for positive identification. Bed in low position. Call light in reach. Side rails up X 1. 18:04 No provider procedures requiring assistance completed. Patient did not have IV access during this emergency room visit. 18:13 Gunjan Whittington RN is Primary Nurse. 18:13 No apparent distress. Resting quietly. Administered Medications: No medications were administered Outcome: 18:06 Discharge ordered by . snw 18:13 Discharged to home ambulatory. 18:13 Condition: stable 18:13 Discharge instructions given to patient, Instructed on discharge instructions, follow up and referral plans. medication usage, Demonstrated understanding of instructions, follow-up care, medications, Prescriptions given X 1. 18:14 Patient left the ED. Signatures: Gunjan Whittington RN RN Meri Javier FNP-C [employer] Lynette Mcclelland as Corrections: (The following items were deleted from the chart) 17:10 17:08 Presenting complaint: Patient states: pain to R foot after couch was dropped on ch it two months ago ch
[2019-02-14 18:21] VITALS: TEMP 98.1
[2019-02-14 18:22] VITALS: BP 112/76; O2SAT 99
== END 2019-02-14 18:14 | disposition home or self-care (01) ==
LOC: ER 16:41
DX: Z13.9 Encounter for screening, unspecified (principal)
CPT/HCPCS: 99282

== ENCOUNTER 2020-01-04 08:04 | Emergency (ER) | payer BC ==
[2020-01-04 08:56] LABS: Urine Blood TRACE (NEG); Urine Glucose NEGATIVE (NEG); Urine Protein NEGATIVE (NEG); Urine pH 5.5 (5.0-7.0)
--- NOTE | 2020-01-04 09:10 | ER ---
Nurse's Notes [facility] [place], [place] Name: Mauro Bautista Jr Age: 34 yrs Sex: Male : 1985 Arrival Date: 01/04/2020 Time: 08:06 Bed 19 Private MD: Diagnosis: Dysuria;Urethritis and urethral syndrome Presentation: 01/03 08:19 Chief complaint: Patient states: wisdom tooth pain that radiates to the right ear, due sv to have them removed next week. c/o headache, body aches, burning with urination started today. Coronavirus screen: Client denies travel out of the [place] in the last 14 days. headache, muscle pain. Ebola Screen: No symptoms or risks identified at this time. Initial Sepsis Screen: Does the patient meet any 2 criteria? HR > 90 bpm. No. Patient's initial sepsis screen is negative. Does the patient have a suspected source of infection? No. Patient's initial sepsis screen is negative. Risk Assessment: Do you want to hurt yourself or someone else? Patient reports no desire to harm self or others. Onset of symptoms was December 2019. 08:19 Method Of Arrival: Ambulatory sv 08:19 Acuity: KILO 4 sv Triage Assessment: 08:19 General: Appears in no apparent distress. comfortable, obese, well developed, Behavior sv is calm, cooperative, appropriate for age. Pain: Complains of pain in widom teeth. EENT: Reports pain in lower right third molar. Neuro: Level of Consciousness is awake, alert, obeys commands, Oriented to person, place, time, situation, Moves all extremities. Full function Gait is steady, Speech is normal. Respiratory: Respiratory effort is even, unlabored, Respiratory pattern is regular, symmetrical. : Reports burning with urination. Derm: Skin is pink, warm \T\ dry. Historical: - Allergies: 08:21 No Known Allergies; sv - PMHx: 08:21 None; sv - PSHx: 08: None; sv - Immunization history:: Flu vaccine is not up to date. - Social history:: Smoking status: Patient denies any tobacco usage or history of. - Family history:: not pertinent. - Hospitalizations: : No recent hospitalization is reported. Screenin: Abuse screen: Denies threats or abuse. Denies injuries from another. Nutritional sv screening: No deficits noted. Tuberculosis screening: No symptoms or risk factors identified. Fall Risk None identified. Assessment: 09:17 Reassessment: Patient appears in no apparent distress at this time. No changes from previously documented assessment. Patient and/or family updated on plan of care and expected duration. Pain level reassessed. Patient is alert, oriented x 3, equal unlabored respirations, skin warm/dry/pink. Vital Signs: 08:19 BP 137 / 98; Pulse 96; Resp 18; Temp 97.2; Pulse Ox 98% ; Weight 158.76 kg; Height 5 sv ft. 11 in. (180.34 cm); Pain 6/10; 08:19 Body Mass Index 48.81 (158.76 kg, 180.34 cm) sv ED Course: 08:06 Patient arrived in ED. ag5 08:12 Angelita Del Valle, BARBARA is Primary Nurse. sv 08:17 Terry Mcgowan MD is Attending Physician. rn 08:19 ED physician to see patient. sv 08:21 Triage completed. sv 08:21 Arm band placed on. sv 08:21 Patient has correct armband on for positive identification. Bed in low position. Call sv light in reach. Pulse ox on. NIBP on. Door closed. Head of bed elevated. 09:17 No provider procedures requiring assistance completed. Patient did not have IV access sv during this emergency room visit. Administered Medications: No medications were administered Outcome: 09:09 Discharge ordered by . rn 09:17 Patient left the ED. sv 09:17 Discharged to home ambulatory. sv 09:17 Condition: stable 09:17 Discharge instructions given to patient, Instructed on discharge instructions, follow up and referral plans. medication usage, Demonstrated understanding of instructions, follow-up care, medications, Prescriptions given X 1. Signatures: Angelita Del Valle RN RN Terry Mcgowan MD MD rn Gaskin, Ajare ag5
--- NOTE | 2020-01-04 09:10 | EDPHYS ---
Physician Documentation [facility] Name: Mauro Bautista Jr Age: 34 yrs Sex: Male : 1985 Arrival Date: 01/04/2020 Time: 08:06 Bed 19 Private MD: ED Physician Terry Mcgowan HPI: 01/03 08:23 This 34 yrs old Male presents to ER via Ambulatory with complaints of pain rn with urination. 08:24 The patient presents with urinary symptoms, dysuria. Onset: The symptoms/episode rn began/occurred 2 day(s) ago. Modifying factors: The symptoms are alleviated by nothing, the symptoms are aggravated by urinating. Associated signs and symptoms: Pertinent positives: dysuria, Pertinent negatives: abdominal pain, constipation, diarrhea, fever, hematuria, nausea, vomiting. Severity of symptoms: At their worst the symptoms were mild, in the emergency department the symptoms are unchanged. The patient has not experienced similar symptoms in the past. The patient has not recently seen a physician. Denie spenile discharge or trauma. + dysuria. No hx of UTI. Reports dental pain that causes ear pain, due to remove tooth next week, present for about a month, and no acute changes. States here today for urinary symptoms. . Historical: - Allergies: 08:21 No Known Allergies; sv - PMHx: 08:21 None; sv - PSHx: 08:21 None; sv - Immunization history:: Flu vaccine is not up to date. - Social history:: Smoking status: Patient denies any tobacco usage or history of. - Family history:: not pertinent. - Hospitalizations: : No recent hospitalization is reported. ROS: 08:24 Constitutional: Negative for fever, chills, and weight loss, Abdomen/GI: Negative for rn abdominal pain, nausea, vomiting, diarrhea, and constipation, : + dysuria Exam: 08:24 Constitutional: This is a well developed, well nourished patient who is awake, alert, rn and in no acute distress. Eyes: Pupils equal round and reactive to light, extra-ocular motions intact. Lids and lashes normal. Conjunctiva and sclera are non-icteric and not injected. Cornea within normal limits. Periorbital areas with no swelling, redness, or edema. Neck: Trachea midline, no thyromegaly or masses palpated, and no cervical lymphadenopathy. Supple, full range of motion without nuchal rigidity, or vertebral point tenderness. No Meningismus. Cardiovascular: Regular rate and rhythm. No pulse deficits. Respiratory: Speaking full sentences, unlabored Abdomen/GI: Soft, non-tender Skin: Warm, dry with normal turgor. Normal color with no rashes, no lesions, and no evidence of cellulitis. Vital Signs: 08:19 BP 137 / 98; Pulse 96; Resp 18; Temp 97.2; Pulse Ox 98% ; Weight 158.76 kg; Height 5 sv ft. 11 in. (180.34 cm); Pain 6/10; 08:19 Body Mass Index 48.81 (158.76 kg, 180.34 cm) sv MDM: 08:17 Patient medically screened. rn 08:24 Differential diagnosis: UTI, urethritis. rn 09:08 Data reviewed: vital signs, nurses notes, lab test result(s), and as a result, I will rn mds coordinator patient. Counseling: I had a detailed discussion with the patient and/or guardian regarding: the historical points, exam findings, and any diagnostic results supporting the discharge/admit diagnosis, lab results, the need for outpatient follow up, to return to the emergency department if symptoms worsen or persist or if there are any questions or concerns that arise at home. Special discussion: I discussed with the patient/guardian in detail that at this point there is no indication for admission to the hospital. It is understood, however, that if the symptoms persist or worsen the patient needs to return immediately for re-evaluation. ED course: Trace blood on UA, no flank or abd pain, could be urethritis, will dc home with abx and pcp f/u.. 01/03 08:34 Order name: Urine Dipstick--Ancillary (enter results); Complete Time: 09:07 eb 01/03 08:23 Order name: Urine Dipstick-Ancillary (obtain specimen); Complete Time: 08:50 rn Administered Medications: No medications were administered Disposition: 01/04/20 09:09 Discharged to Home. Impression: Dysuria, Urethritis and urethral syndrome. - Condition is Stable. - Discharge Instructions: Dysuria, Urethritis, Adult. - Prescriptions for Cipro 500 mg Oral Tablet - take 1 tablet by ORAL route every 12 hours for 7 days; 14 tablet. - Medication Reconciliation Form, Thank You Letter, Antibiotic Education, Prescription Opioid Use, Work release form form. - Follow up: Private Physician; When: As needed; Reason: Recheck today's complaints, Re-evaluation by your physician. - Problem is new. - Symptoms have improved. Signatures: Dispatcher [employer] Angelita Schmidt RN RN sv Nieto, Roman, MD MD spring internship: (The following items were deleted from the chart) 09:17 09:09 01/04/2020 09:09 Discharged to Home. Impression: Dysuria; Urethritis and urethral sv syndrome. Condition is Stable. Forms are Medication Reconciliation Form, Thank You Letter, Antibiotic Education, Prescription Opioid Use. Follow up: Private Physician; When: As needed; Reason: Recheck today's complaints, Re-evaluation by your physician. Problem is new. Symptoms have improved. rn
[2020-01-04 09:50] VITALS: BP 137/98; TEMP 97.2; O2SAT 98
== END 2020-01-04 09:17 | disposition home or self-care (01) ==
LOC: ER 08:04
DX: N34.2 Other urethritis (principal); N34.3 Urethral syndrome, unspecified
CPT/HCPCS: 81003; 99283

== ENCOUNTER 2024-04-08 19:10 | Emergency (ER) | payer OTHER ==
--- OUTSIDE RECORDS SUMMARY | 2024-04-08 19:13 | XMS REPORT | Continuity of Care Document ---
Author Name Unknown Address [address] [place] [address]. [address] [place], [place] [id number] [place] [address] thconnect Address [address] [facility]. [address] [place] [address] Care Team Providers Care Bathroom Tiling Professional Name Role Phone Gorge Duggan Attending Clinician Unavailable Gorge Duggan Admitting Clinician Unavailable Payers Payer Name Policy Type Policy Number Effective Date Expirati on Date Source Allergies, Adverse Reactions, Alerts Allergy Name Allergy Type Status Severity Reaction(s) Onset Date Inactive Date Treating Clinician Comments Source No Known Allergie s DA Active U 03[facility]09 [facility] Procedures Procedure Date / Time Performed Performing Clinicia n Source [id number] 2021-03-10 00:00:00 [email or web address] [facility] [id number] 2021-03-10 00:00:00 [email or web address] [facility] Encounters Start Date/Time End Date/Time Encounter Type Admission Type Attending Clinicians Care Facility Care Department Encounter ID Source 2021-03-10 05:52:00 2021-03-11 09:53:00 Inpatient Gorge Alves [facility]01 [id number] Results Test Description Test Time Test Comments Results Result Co mments Source [id number] 06:16:00* Test Item Value Reference Range Interpretation Comme nts GLUBED (test code = GLUBED) 96 MG/DL 70-105 N BASIC METABOLIC [id number] 06:00:00* Test Item Value Reference Range Interpretation Comme nts SODIUM (test code = NA) 139 mmol/L 136-145 N Please note: New Reference Range Mar 2020 POTASSIUM (test code = K) 3.9 mmol/L 3.5-5.1 N CHLORIDE (test code = CL) 105 mmol/L 98-107 N Please note: New Reference Range Mar 2020 CARBON DIOXIDE (test code = CO2) 25 mmol/L 20-31 N Please note: N ew Reference Range Mar 2020 GLUCOSE (test code = GLU) 106 mg/dL 74-106 N Please note: New Reference Range Mar 2020 BLOOD UREA NITROGEN (test code = BUN) 9 mg/dL 9-23 N Please note: New Reference Range Mar 2020 GLOMERULAR FILTRATION RATE (test code = GFR) >=60 max estimate mL/min >60 Units are mL/min/1.73m2 The estimated glomerular filtration rate is computed usingpatient race, age (>18), sex, and serum creatinine. If anyof the needed data elements are missing the Laboratory cannot compute an estimation of the glomerular filtration rate. CREATININE (test code = CREAT) 0.70 mg/dL 0.70-1.30 N Please note: New Reference Range Mar 2020 CALCIUM (test code = CA) 8.2 mg/dL 8.7-10.4 L Please note: New Reference Range Mar 2020 Spec Comments: PRE OPCBC W/AUTO [id number] 05:38:00* Test Item Value Reference Range Interpretation Comme nts WHITE BLOOD CELL (test code = WBC) 16.6 x10 3/uL 4.8-10.8 H RED BLOOD CELL (test code = RBC) 4.69 x10 6/uL 4.70-6.10 L HEMOGLOBIN (test code = HGB) 13.6 g/dL 14.0-18.0 L HEMATOCRIT (test code = HCT) 40.8 % 42.0-52.0 L MEAN CELL VOLUME (test code = MCV) 87.0 fL 80.0-94.0 N MEAN CELL HGB (test code = MCH) 29.0 pg 27-31 N MEAN CELL HGB CONCENTRATION (test code = MCHC) 33.3 G/DL 33-36.5 N RED CELL DISTRIBUTION WIDTH (test code = RDW) 12.5 % 12.9-16.9 L PLATELET COUNT (test code = PLT) 301 x10 3/uL 150-440 N MEAN PLATELET VOLUME (test code = MPV) 11.2 fL 8.9-12.4 N NEUTROPHIL % (test code = NT%) 77.9 % 42.2-75.2 H LYMPHOCYTE % (test code = LY%) 13.6 % 20.5-51.1 L MONOCYTE % (test code = MO%) 7.7 % 1.7-9.3 N EOSINOPHIL % (test code = EO%) 0.1 % 0.0-7.0 N BASOPHIL % (test code = BA%) 0.2 % 0-2.5 N NEUTROPHIL # (test code = NT#) 12.89 x10 3/uL 1.80-7.70 H LYMPHOCYTE # (test code = LY#) 2.25 x10 3/uL 1.00-4.80 N MONOCYTE # (test code = MO#) 1.27 x10 3/uL 0.00-0.80 H EOSINOPHIL # (test code = EO#) 0.02 x10 3/uL 0.00-0.45 N BASOPHIL # (test code = BA#) 0.04 x10 3/uL 0.0-0.20 N Spec Comments: PRE [id number] 00:03:00* Test Item Value Reference Range Interpretation Comme nts GLUBED (test code = GLUBED) 109 MG/DL 70-105 H [id number] 17:41:00* Test Item Value Reference Range Interpretation Comme nts GLUBED (test code = GLUBED) 128 MG/DL 70-105 H [id number] 12:29:00* Test Item Value Reference Range Interpretation Comme nts GLUBED (test code = GLUBED) 169 MG/DL 70-105 H Notes Date/Time Note Provider Source 2021-03-10 06:26:00 [id number] [place] [address] PATIENT NAME: KEYANNA MABRY JR ADMIT DATE: 03/10/21 ACCOUNT NO: [id number] ROOM NO: [facility] AGE: 35 REPORT TYPE: eELECTROCARDIOGRAM SEX: M ADMITTING PHYSICIAN: Gorge Duggan MD ATTENDING PHYSICIAN: Gorge Duggan MD Order: [id number] Test Reason : DSU Test Date/Time Stamp: SunMar 10 2021 06:26:16 Blood Pressure : / mmHG Vent. Rate : 082 BPM Atrial Rate : 082 BPM P-R Int : 152 ms QRS Dur : 092 ms QT Int : 390 ms P-R-T Axes : 024 020 039 degrees QTc Int : 455 ms Normal sinus rhythm Normal ECG No previous ECGs available Confirmed by ALMA ROUSE MD ([id number]) on 03/10/2021 3:34:56 PM Referred By: Self Referred Confirmed by:ALMA ROUSE MD at 1021 PATIENT NAME: KEYANNA MABRY JR [facility]
--- NOTE | 2024-04-08 20:30 | RAD REPORT ---
Extremity Venous Uni Ltd CLINICAL INDICATION: Male, 38 years old.discoloration, swelling RIGHT TECHNIQUE: Complete duplex sonography of the lower extremity veins was performed of the affected limb . The examination included compression for vein patency, color Doppler imaging and flow augmentation in response to distal compression of the distal external iliac, common femoral, femoral, popliteal, peroneal, tibial and great saphenous veins. [id number]. COMPARISON: No prior exams FINDINGS: Duplex sonography imaging demonstrates all deep veins examined to be fully compressible with spontane ous, phasic and augmented flow in the affected limb. IMPRESSION: No evidence of deep venous thrombosis in the left lower extremity.
--- NOTE | 2024-04-08 20:49 | RAD REPORT ---
EXAM: Extremity Nonvascular Limited HISTORY: evaluate hematoma RIGHT COMPARISON: None TECHNIQUE: Sonographic grayscale and color flow imaging of the right knee including the region of int erest as described by the patient. FINDINGS: No sonographic correlate to the reported site of bruising/hematoma. No fluid collection identified. IMPRESSION: No sonographic correlate identified at the area of concern.
--- NOTE | 2024-04-08 20:51 | ER ---
Nurse's Notes [facility] Name: Mauro Bautista Jr Age: 38 yrs Sex: Male : 1985 Arrival Date: 04/08/2024 Time: 19:10 Bed 6 Private MD: Diagnosis: Nontraumatic hematoma of soft tissue Presentation: 04/08 19:45 Chief complaint: Painless bruise behind right knee, onset unknown. Coronavirus screen: hb At this time, the client does not indicate any symptoms associated with coronavirus-19. Ebola Screen: No symptoms or risks identified at this time. Initial Sepsis Screen: Does the patient meet any 2 criteria? No. Patient's initial sepsis screen is negative. Does the patient have a suspected source of infection? No. Patient's initial sepsis screen is negative. Risk Assessment: Do you want to hurt yourself or someone else? Patient reports no desire to harm self or others. Onset of symptoms is unknown. 19:45 Method Of Arrival: Ambulatory hb 19:45 Acuity: KILO 4 hb Triage Assessment: 19:48 General: Appears in no apparent distress. Behavior is calm, cooperative. Pain: Denies hb pain. Neuro: Level of Consciousness is awake, alert, obeys commands, Oriented to person, place, time, situation. Cardiovascular: Patient's skin is warm and dry. Respiratory: Respiratory effort is even, unlabored, Respiratory pattern is regular, symmetrical. Historical: - Allergies: 19:47 No Known Allergies; hb - Home Meds: 19:47 None [Active]; hb - PSHx: 19:47 Vasectomy; hb - Immunization history:: Adult Immunizations up to date. - Infectious Disease History:: Denies. - Social history:: Smoking status: Patient denies any tobacco usage or history of. Screenin:04 [facility] ED Fall Risk Assessment (Adult) History of falling in the last 3 months, aa10 including since admission No falls in past 3 months (0 pts) Confusion or Disorientation No (0 pts) Intoxicated or Sedated No (0 pts) Impaired Gait No (0 pts) Mobility Assist Device Used No (0 pt) Altered Elimination No (0 pt) Score/Fall Risk Level 0 - 2 = Low Risk Oriented to surroundings, Maintained a safe environment, Educated pt \T\ family on fall prevention, incl call for assistance when getting out of bed, Assessed \T\ reinforced patient's understanding of fall precautions, Provided non-skid footwear, Hourly rounding (assess needs \T\ fall precautionary measures) done. Abuse screen: Denies threats or abuse. Denies injuries from another. Nutritional screening: No deficits noted. Tuberculosis screening: No symptoms or risk factors identified. Assessment: 21:02 Reassessment: Patient appears in no apparent distress at this time. No changes from aa10 previously documented assessment. Patient and/or family updated on plan of care and expected duration. Pain level reassessed. Patient is alert, oriented x 3, equal unlabored respirations, skin warm/dry/pink. General: Appears in no apparent distress. comfortable, Behavior is calm, cooperative, appropriate for age. Pain: Complains of pain in right leg and left leg. Pain: Pain does not radiate. Pain currently is 2 out of 10 on a pain scale. Quality of pain is described as aching, Pain began gradually, Alleviated by medications, Aggravated by exercise, increased activity, Noted to be quiet/stoic. Neuro: No deficits noted. Level of Consciousness is awake, alert, obeys commands, Oriented to person, place, time, situation, Appropriate for age Manager Hydraulic are equal bilaterally Moves all extremities. Gait is steady, Speech is normal. Cardiovascular: No deficits noted. Clubbing of nail beds is absent. Respiratory: No deficits noted. Airway is patent. Vital Signs: 19:45 BP 140 / 102; Pulse 59; Resp 16; Temp 97.8(TE); Pulse Ox 99% on R/A; Weight 115.67 kg; hb Height 5 ft. 11 in. ; Pain 0/10; 21:05 BP 111 / 84; Pulse 63; Resp 16; Temp 98.1; Pulse Ox 100% ; dd2 19:45 Body Mass Index 35.56 (115.67 kg, 180.34 cm) hb 19:45 Pain Scale: Adult hb ED Course: 19:12 Patient arrived in ED. im 19:36 Trudi Hopkins FNP-C is PHCP. kb 19:36 Tarsha Glass MD is Attending Physician. kb 19:47 Triage completed. hb 19:48 Arm band placed on. hb 20:01 BRIGITTE WYLIE, RN is Primary Nurse. dd2 20:24 US Extremity Venous Unilateral Ltd In Process Unspecified. EDMS 20:24 US Extrmty Nonvasular Limited In Process Unspecified. EDMS 21:05 Patient has correct armband on for positive identification. Allergy band placed. Fall aa10 risk band placed. Placed in gown. Bed in low position. Side rails up X 1. Side rails up X2. Provided Education on: plan of care. 21:05 Provided Education on: D/C EDUCATION. dd2 21:05 No provider procedures requiring assistance completed. Patient did not have IV access aa10 during this emergency room visit. Administered Medications: No medications were administered Medication: 21:04 VIS not applicable for this client. aa10 Outcome: 20:51 Discharge ordered by . kb 21:05 Discharged to home ambulatory, dd2 21:05 Condition: stable 21:05 Discharge instructions given to patient, Instructed on discharge instructions, follow up and referral plans. Demonstrated understanding of instructions, follow-up care, 21:06 Patient left the ED. dd2 Signatures: Dispatcher [employer] EDMN Trudi Hopkins, MEDICAL COLLECTIONS REPRESENTATIVE-C MEDICAL COLLECTIONS REPRESENTATIVE-CkLisa Hendrix, RN RN Patricia Gr DIANA RN RN dd2 Marin Ferreira, RN RN aa10
--- NOTE | 2024-04-08 20:51 | EDPHYS ---
Physician Documentation [facility] Name: Mauro Bautista Jr Age: 38 yrs Sex: Male : 1985 Arrival Date: 04/08/2024 Time: 19:10 Bed 6 Private MD: ED Physician Tarsha Glass HPI: 04/08 21:33 This 38 yrs old Male presents to ER via Ambulatory with complaints of Leg kb Swelling - bruise. 21:33 Patient is a 38-year-old male who presents for a bruise to right lateral lower kb extremity that he noticed whenever he took his pants off this evening. States he did not notice it this morning. Denies injury or trauma. Denies any pain.. Historical: - Allergies: 19:47 No Known Allergies; hb - Home Meds: 19:47 None [Active]; hb - PSHx: 19:47 Vasectomy; hb - Immunization history:: Adult Immunizations up to date. - Infectious Disease History:: Denies. - Social history:: Smoking status: Patient denies any tobacco usage or history of. ROS: 21:33 Constitutional: As per HPI kb Exam: 21:33 Constitutional: This is a well developed, well nourished patient who is awake, alert, kb and in no acute distress. Head/Face: Normocephalic, atraumatic. ENT: Moist Mucous membranes Cardiovascular: Regular rate Respiratory: Respirations even and unlabored. No increased work of breathing. Talking in full sentences MS/ Extremity: Pulses equal, no cyanosis. Neurovascular intact. Full, normal range of motion. Neuro: Awake and alert, GCS 15, oriented to person, place, time, and situation. 21:33 Skin: Hematoma noted to lateral aspect of right leg just below knee. Vital Signs: 19:45 BP 140 / 102; Pulse 59; Resp 16; Temp 97.8(TE); Pulse Ox 99% on R/A; Weight 115.67 kg; hb Height 5 ft. 11 in. ; Pain 0/10; 21:05 BP 111 / 84; Pulse 63; Resp 16; Temp 98.1; Pulse Ox 100% ; dd2 19:45 Body Mass Index 35.56 (115.67 kg, 180.34 cm) hb 19:45 Pain Scale: Adult hb MDM: 19:36 Medical Screening Exam initiated kb 21:33 Differential diagnosis: Hematoma, contusion, DVT, abscess. Data reviewed: vital signs, kb nurses notes. Counseling: I had a detailed discussion with the patient and/or guardian regarding the historical points, exam findings, and any diagnostic results supporting the discharge/admit diagnosis, radiology results, the need for outpatient follow up, a family practitioner, to return to the emergency department if symptoms worsen or persist or if there are any questions or concerns that arise at home. 04/08 19:49 Order name: Extremity Venous Unilateral Ltd; Complete Time: 20:46 kb 04/08 19:49 Order name: Extrmty Nonvasular Limited; Complete Time: 20:50 kb Administered Medications: No medications were administered Disposition Summary: 04/08/24 20:51 Discharge Ordered Notes: Location: Home kb Condition: Stable kb Diagnosis - Nontraumatic hematoma of soft tissue kb Followup: kb - With: Emergency Department - When: As needed - Reason: Worsening of condition Followup: kb - With: Private Physician - When: 2 - 3 days - Reason: Recheck today's complaints, Continuance of care, Re-evaluation by your physician Discharge Instructions: - Discharge Summary Sheet kb - Hematoma, [id number] kb Forms: - Medication Reconciliation Form kb - Antibiotic Education kb - Prescription Opioid Use kb - Patient Portal Instructions kb - Leadership Thank You Letter kb Signatures: Dispatcher [employer] Trudi Walls, JOSE GUADALUPE-Abundio GAITANP-Lisa Villalobos, RN RN
[2024-04-09 01:36] VITALS: BP 111/84; TEMP 98.1; O2SAT 100
== END 2024-04-08 21:06 | disposition home or self-care (01) ==
LOC: ER 19:10
DX: M79.81 Nontraumatic hematoma of soft tissue (principal)
CPT/HCPCS: 76882; 93971; 99283